=== PATIENT | male | born 1930 | race Caucasian/White ===

== ENCOUNTER 2016-05-07 05:29 | Inpatient (IN) | payer OTHER ==
[~2016-05-07] VITALS: Ht 157.5 cm; Wt 65.2 kg
[2016-05-07 06:58] LABS: BASO % 0.5 % (0.0-1.0); EOS # 0.1 K/mm3 (0.0-0.50); EOS % 1.6 % (0.0-3.0); LARGE UNSTAINED CELL # 0.2 K/mm3 (0.0-0.4); LYMPH # 0.9 K/mm3 (1.5-4.5); LYMPH % 14.4 % (24.0-44.0); MEAN CORPUSCULAR HEMOGLOBIN 24.6 pg (27.0-33.0); MEAN CORPUSCULAR HGB CONC 31.1 g/dl (32.0-36.5); MEAN CORPUSCULAR VOLUME 79.2 fl (80.0-96.0); MONO # 0.4 K/mm3 (0.0-0.8); MONO % 6.2 % (0.0-5.0); NEUTROPHILS # 4.7 K/mm3 (1.8-7.7); NEUTROPHILS % 74.3 % (36.0-66.0); PLATELET COUNT, AUTOMATED 191 k/mm3 (150-450); RED CELL DISTRIBUTION WIDTH 16.9 % (11.5-14.5); WHITE BLOOD COUNT 6.3 K/mm3 (4.0-10.0)
[2016-05-07 07:01] LABS: ANION GAP 8 MEQ/L (8-16); BLOOD UREA NITROGEN 21 MG/DL (7-18); CALCIUM LEVEL 9.3 MG/DL (8.8-10.2); CARBON DIOXIDE LEVEL 28 MEQ/L (21-32); CHLORIDE LEVEL 104 MEQ/L (98-107); CREATININE FOR GFR 0.98 MG/DL (0.70-1.30); GLOMERULAR FILTRATION RATE > 60.0 (>35); GLUCOSE, FASTING 99 MG/DL (83-110); POTASSIUM SERUM 4.3 MEQ/L (3.5-5.1); SODIUM LEVEL 140 MEQ/L (136-145)
[2016-05-07] MEDS ORDERED: CENTTAB PO (07:31)
[2016-05-07] MEDS ORDERED: METO12TA PO (07:31)
[2016-05-07] MEDS ORDERED: ELIQ5TAB PO (07:31)
[2016-05-07] MEDS ORDERED: SPIR25TA2 PO (07:31)
[2016-05-07] MEDS ORDERED: ALPH0.156 OU (07:31)
[2016-05-07] MEDS ORDERED: ACET50TAOT PO (07:31)
[2016-05-07] MEDS ORDERED: NEXI20CA PO (07:31)
[2016-05-07] MEDS ORDERED: ATOR1TAB19 PO (07:31)
[2016-05-07] MEDS: BRIMONIDINE 0.15% OPHTH SOLN 5 ML OU SCH ×2 (09:00→21:43)
[2016-05-07] MEDS ORDERED: ACETAMINOPHEN TAB 650MG DOSE (2X325MG) PO PRN (09:15)
[2016-05-07] MEDS ORDERED: ISOVUE-370 76% 100ML VIAL (Q9967) As Ordered ONE (09:16)
[2016-05-07 10:39] LABS: INR 1.45
[2016-05-07] MEDS ORDERED: ACETAMINOPHEN 325 MG TAB As Ordered ONE (12:29)
--- NOTE | 2016-05-07 14:33 | EDDOCDS ---
Physician Documentation [facility] Name: Salomon Quinones Age: 85 yrs Sex: Male : 1930 Arrival Date: 05/07/2016 Time: 05:29 Bed Admit Hold Private MD: Alexandre Disposition: 05/07/16 08:39 Hospitalization ordered by Lynn Kim for Inpatient Admission. Preliminary diagnosis are Dyspnea - on exertion, rule out congestive heart failure, Left bundle-branch block, unspecified. - Bed requested for PCU. - Status is Inpatient Admission. ld5 - Condition is Stable. - Problem is new. - Symptoms are unchanged. Historical: - Allergies: Ciprofloxacin; - Home Meds: 1. metoprolol tartrate 25 mg Oral tab 2. Eliquis oral oral 3. atorvastatin 10 mg oral tab 1 tab once daily 4. spironolactone 25 mg Oral tab 5. Esomeprazole Magnesium Oral - PMHx: CAD; Hypertension; Kidney stones; Cancer, Prostate; GERD; - PSHx: CABG; Porcine valve replacement; Prostatectomy; lymph node removal; Lithotripsy; - Social history: Smoking status: Patient states former smoker of tobacco. No barriers to communication noted, The patient speaks fluent Senegalese, Speaks appropriately for age. - Family history: Not pertinent. - : The pt / caregiver states he / she is on anticoagulants: Eliquis Home medication list is obtained from the patient. - Exposure Risk Screening:: None identified. Vital Signs: 05/07 05:36 BP 105 / 65 (auto/); cz 05:36 Pulse Ox 99% ; cz 05:39 BP 105 / 65; Pulse 70; Resp 22; Temp 98.2(O); Pulse Ox 94% on R/A; Weight 67.59 kg / js15 149.01 lbs; Height 5 ft. 2 in. (157.48 cm); Pain 0/10; 06:05 Pulse 72 MON; Pulse Ox 97% ; cz 06:06 BP 124 / 60 (auto/); cz 06:20 Pulse 74 MON; Pulse Ox 95% ; cz 06:21 BP 123 / 60 (auto/); cz 07:03 BP 103 / 65 (auto/); ml6 07:03 Pulse 72 MON; Resp 16; Pulse Ox 96% on R/A; Pain 0/10; ml6 09:34 BP 108 / 59 (auto/); ml6 09:34 Pulse 74 MON; Resp 16; Pulse Ox 98% on R/A; ml6 10:04 BP 117 / 63 (auto/); ml6 10:04 Pulse 74 MON; Resp 16; Pulse Ox 97% on R/A; ml6 10:34 BP 108 / 86 (auto/); ml6 10:34 Pulse 72 MON; Resp 16; Pulse Ox 98% on R/A; Pain 0/10; ml6 11:04 BP 127 / 60 (auto/); ml6 11:04 Pulse 70 MON; Resp 16; Pulse Ox 98% on R/A; ml6 11:34 BP 116 / 71 (auto/); ml6 11:34 Pulse 70 MON; Resp 16; Pulse Ox 97% on R/A; ml6 12:04 BP 122 / 65 (auto/); ml6 12:04 Pulse 72 MON; Resp 16; Pulse Ox 97% on R/A; ml6 12:34 BP 122 / 83 (auto/); ml6 12:34 Pulse 70 MON; Resp 16; Pulse Ox 97% on R/A; ml6 13:04 BP 110 / 71 (auto/); ml6 13:04 Pulse 72 MON; Resp 18; Temp 98.1(O); Pulse Ox 98% on R/A; Pain 4/10; ml6 14:16 BP 112 / 74; Pulse 70 MON; Resp 16; Temp 98.2(O); Pulse Ox 95% on R/A; Pain 0/10; ml6 05:39 Body Mass Index 27.25 (67.59 kg, 157.48 cm) js15 MDM: 06:16 Chest, 2 View (pa\E\lat) Ordered. EDMS 06:17 ECG WITH READING ER PHYS+CARDIAG ordered. EDMS 06:17 CBC with Diff Ordered. EDMS 06:17 MED Profile Ordered. EDMS 06:17 BNP Ordered. EDMS 06:17 Cardiac Marker Panel Ordered. EDMS 06:59 BNP Reviewed. br1 07:06 CBC with Diff Reviewed. br1 07:06 MED Profile Reviewed. br1 07:06 Cardiac Marker Panel Reviewed. br1 07:07 IV Saline Lock ordered. br1 07:07 Cloth Classer/Pulse Ox/q 30 min VS ordered. br1 07:12 BED REQUEST+ADM ordered. EDMS 07:47 Financial registration complete. lg 07:58 [facility] Payment Agreement was scanned into [employer] and attached to record. lg 09:07 Admission / Observation Status ordered. EDMS 09:07 ELECTROCARDIOGRAM ADULT ordered. EDMS 09:07 2 GRAM SODIUM DIET ordered. EDMS 09:08 CARDIAC INJURY PROFILE Ordered. EDMS 09:08 CARDIAC INJURY PROFILE Ordered. EDMS 09:08 TROPONIN Ordered. EDMS 09:08 TROPONIN Ordered. EDMS 09:08 URINALYSIS Ordered. EDMS 09:10 PARTIAL THROMBOPLASTIN TIME Ordered. EDMS 09:10 PROTHROMBIN TIME PROFILE\E\INR Ordered. EDMS 09:12 CT ANGIO CHEST Ordered. EDMS 09:18 OCCULT BLOOD STOOL SPECIMEN Ordered. EDMS 13:18 Acetaminophen Tablet 650 mg PO once; Per Dr. Kim ordered. ml6 Administered Medications: 13:18 Drug: Acetaminophen 650 mg [acetaminophen 325 mg tablet (2 tabs)] Route: PO; ml6 Signatures: Dispatcher [employer] EDAZ Fco Coley, RN RN cz Ericka Frost, Reg Reg lg Ghassan Reynolds MD MD br1 Roddy Jack RN RN ml6 Rosetta Bahena RN RN ld5 Justine Ga, ILIANA RN sls2 Tanesha Andrade,RN RN js15 The chart was reviewed and I authenticate all verbal orders and agree with the evaluation and treatment provided.Attachments: 07:58 [facility] Payment Agreement lg MTDD
--- NOTE | 2016-05-07 14:33 | EDDOCDS ---
Nurse's Notes [facility] Name: Salomon Quinones Age: 85 yrs Sex: Male : 1930 Arrival Date: 05/07/2016 Time: 05:29 Bed Admit Hold Private MD: Alexandre Diagnosis: Dyspnea-on exertion, rule out congestive heart failure;Left bundle-branch block, unspecified Presentation: 05/07 05:31 Presenting complaint: EMS states: Pt got up this morning to use restroom and jsJesús noticed when he came back to bed that he was breathing rapidly; upon EMS arrival pt denies pain or shortness of breath; hx of CABG/porcine valve replacement in 01/2016. Suicide/Homicide risk assessment- the patient denies having any suicidal and/or homicidal ideations and does not present with any other emotional, behavioral or mental health complaints. Status: Patient is not a auto specialty services manager or dependent. Transition of care: patient was not received from another setting of care. 05:31 Acuity: NITIN Level 3 [facility] 05:31 Method Of Arrival: Ambulance [facility] 06:35 Adult Sepsis Screening: The patient does not have new or worsening altered mentation. cz Patient has a respiratory rate of greater than or equal to 22 (1 point). Systolic blood pressure is greater than 100. Patient has a qSOFA score of 1- Negative Sepsis Screen. Triage Assessment: 05:41 General: Appears in no apparent distress, Behavior is appropriate for age, cooperative. js15 Pain: Denies pain. The patient is triaged at the bedside. See Assessment in Nurses Notes section of ED record. Neurological: Level of Consciousness is awake, alert, obeys commands, Oriented to person, place, time. Respiratory: Onset: The symptoms/episode began/occurred this morning, Airway is patent Respiratory effort is even, labored, Respiratory pattern is regular, symmetrical. Derm: Skin is pink, warm & dry. Historical: - Allergies: Ciprofloxacin; - Home Meds: 1. metoprolol tartrate 25 mg Oral tab 2. Eliquis oral oral 3. atorvastatin 10 mg oral tab 1 tab once daily 4. spironolactone 25 mg Oral tab 5. Esomeprazole Magnesium Oral - PMHx: CAD; Hypertension; Kidney stones; Cancer, Prostate; GERD; - PSHx: CABG; Porcine valve replacement; Prostatectomy; lymph node removal; Lithotripsy; - Social history: Smoking status: Patient states former smoker of tobacco. No barriers to communication noted, The patient speaks fluent Vietnamese, Speaks appropriately for age. - Family history: Not pertinent. - : The pt / caregiver states he / she is on anticoagulants: Eliquis Home medication list is obtained from the patient. - Exposure Risk Screening:: None identified. Screenin:45 Screening information is obtained from the patient. Fall risk: At risk due to age. cz Assistance ADL's: requires no assistance with activities of daily living. Abuse/DV Screen: The patient / caregiver reports he/she is: not in a situation that causes fear, pain or injury. Nutritional screening: No deficits noted. home support is adequate. 05:51 Advance Directives: Currently, there is a health care proxy, daughter Janis Deleon. cz There is no active DNR order. There is no living will. There is an active Power of Deputy Brand Inspector, Janis Deleon<daughter>. Assessment: 05:45 Adult Sepsis Screening: The patient does not have new or worsening altered mentation. cz Patient's respiratory rate is less than 22. Systolic blood pressure is greater than 100. Patient has a qSOFA score of 0- Negative Sepsis Screen. General: Appears in no apparent distress, comfortable, Behavior is appropriate for age. Cardiovascular: Capillary refill < 3 seconds Rhythm is regular. Respiratory: Airway is patent Respiratory effort is even, unlabored, Respiratory pattern is regular, Breath sounds are clear bilaterally. 07:00 General: Appears in no apparent distress, comfortable, Behavior is appropriate for age, ml6 cooperative. Pain: Denies pain. Neurological: No deficits noted. Level of Consciousness is awake, alert, Oriented to person, place, time. Cardiovascular: No deficits noted. Capillary refill < 3 seconds is brisk in bilateral fingers toes Heart tones S1 S2 S3 present Murmur present Edema is absent. Pulses are all present. Rhythm is regular Chest pain is denied. GI: No deficits noted. Abdomen is flat, non- distended Bowel sounds present X 4 quads. Abd is soft and non tender X 4 quads. 08:00 Reassessment: Patient appears in no apparent distress at this time. Patient denies pain ml6 at this time. Patient states feeling better. Patient states symptoms have improved. 09:00 Reassessment: Patient appears in no apparent distress at this time. Patient denies pain ml6 at this time. Patient states feeling better. Patient states symptoms have improved. 10:00 General: Appears in no apparent distress, Behavior is appropriate for age, cooperative. ml6 Pain: Denies pain. Neurological: No deficits noted. Level of Consciousness is awake, alert, Oriented to person, place, time. Cardiovascular: No deficits noted. Capillary refill < 3 seconds is brisk in bilateral fingers toes Heart tones S1 S2 present. Respiratory: No deficits noted. Airway is patent Respiratory effort is even, unlabored, Respiratory pattern is regular, symmetrical, Breath sounds are clear bilaterally. GI: No deficits noted. 11:00 Reassessment: Patient appears in no apparent distress at this time. Patient denies pain ml6 at this time. Patient states feeling better. Patient states symptoms have improved. patient sleeping soudnly resp unlabored. 12:00 Reassessment: Patient appears in no apparent distress at this time. Patient denies pain ml6 at this time. Patient states feeling better. Patient states symptoms have improved. patient sleeping soundly resp unlabored. 13:00 General: Appears in no apparent distress, Behavior is appropriate for age, cooperative. ml6 Pain: Location: anterior aspect of right shoulder and posterior aspect of right shoulder Pain currently is 4 out of 10 on a pain scale. Pain does not radiate. Quality of pain is described as aching, Pain began years ago. Is intermittent chronic Alleviated by medications, rest, Aggravated by increased activity. Neurological: No deficits noted. Cardiovascular: No deficits noted. Capillary refill < 3 seconds is brisk in bilateral fingers toes. Respiratory: No deficits noted. Airway is patent Respiratory effort is even, unlabored, Respiratory pattern is regular, symmetrical, Breath sounds are clear bilaterally. GI: No deficits noted. Abdomen is flat, non- distended Bowel sounds present X 4 quads. Abd is soft and non tender X 4 quads. 14:17 General: Appears in no apparent distress, Behavior is appropriate for age, cooperative. ml6 Pain: Denies pain. Neurological: No deficits noted. Level of Consciousness is awake, alert, Oriented to person, place, time. Cardiovascular: No deficits noted. Capillary refill < 3 seconds is brisk in bilateral fingers toes Heart tones S1 S2 present Edema is absent. Pulses are all present. Rhythm is regular. Respiratory: No deficits noted. Airway is patent Respiratory effort is even, unlabored, Respiratory pattern is regular, symmetrical. Vital Signs: 05:36 BP 105 / 65 (auto/); cz 05:36 Pulse Ox 99% ; cz 05:39 BP 105 / 65; Pulse 70; Resp 22; Temp 98.2(O); Pulse Ox 94% on R/A; Weight 67.59 kg; js15 Height 5 ft. 2 in. (157.48 cm); Pain 0/10; 06:05 Pulse 72 MON; Pulse Ox 97% ; cz 06:06 BP 124 / 60 (auto/); cz 06:20 Pulse 74 MON; Pulse Ox 95% ; cz 06:21 BP 123 / 60 (auto/); cz 07:03 BP 103 / 65 (auto/); ml6 07:03 Pulse 72 MON; Resp 16; Pulse Ox 96% on R/A; Pain 0/10; ml6 09:34 BP 108 / 59 (auto/); ml6 09:34 Pulse 74 MON; Resp 16; Pulse Ox 98% on R/A; ml6 10:04 BP 117 / 63 (auto/); ml6 10:04 Pulse 74 MON; Resp 16; Pulse Ox 97% on R/A; ml6 10:34 BP 108 / 86 (auto/); ml6 10:34 Pulse 72 MON; Resp 16; Pulse Ox 98% on R/A; Pain 0/10; ml6 11:04 BP 127 / 60 (auto/); ml6 11:04 Pulse 70 MON; Resp 16; Pulse Ox 98% on R/A; ml6 11:34 BP 116 / 71 (auto/); ml6 11:34 Pulse 70 MON; Resp 16; Pulse Ox 97% on R/A; ml6 12:04 BP 122 / 65 (auto/); ml6 12:04 Pulse 72 MON; Resp 16; Pulse Ox 97% on R/A; ml6 12:34 BP 122 / 83 (auto/); ml6 12:34 Pulse 70 MON; Resp 16; Pulse Ox 97% on R/A; ml6 13:04 BP 110 / 71 (auto/); ml6 13:04 Pulse 72 MON; Resp 18; Temp 98.1(O); Pulse Ox 98% on R/A; Pain 4/10; ml6 14:16 BP 112 / 74; Pulse 70 MON; Resp 16; Temp 98.2(O); Pulse Ox 95% on R/A; Pain 0/10; ml6 05:39 Body Mass Index 27.25 (67.59 kg, 157.48 cm) js15 Vitals: 05:39 Log In Time N/A - ambulance arrival. js15 ED Course: 05:30 Patient visited by Balbir Higuera, Septic Tank Servicer. ml3 05:30 Alexandre is Private Physician. ml3 05:30 Patient moved to Waiting ml3 05:30 Patient moved to 17 ml3 05:35 Ion Barajas DO is Attending Physician. cs11 05:35 Triage Initiated js15 05:36 Patient visited by Ion Barajas DO. cs11 05:45 The patient / caregiver is instructed regarding the plan of care and ED course. cz 05:45 Maintain field IV. Site clean & dry. Gauge & site: 20jelco RAC. No procedures done that cz require assistance. 06:29 Patient visited by Fco Coley RN. cz 06:29 Cardiac Marker Panel Sent. cz 06:29 BNP Sent. cz 06:29 MED Profile Sent. cz 06:29 CBC with Diff Sent. cz 06:30 EKG done. (by ED staff). Reviewed by Ion Barajas DO. cln 06:31 Patient visited by Aundrea Wynn PCA. cln 06:58 Patient visited by Roddy Jack, ILIANA. ml6 07:06 Attending Physician role handed off by Ion Barajas DO br1 07:06 Ghassan Reynolds MD is Attending Physician. br1 07:31 Patient visited by Roddy Jack RN. ml6 07:58 [facility] Payment Agreement was scanned into [employer] and attached to record. lg 08:06 Patient visited by Roddy Jack, ILIANA. ml6 08:39 Lynn Kim is Hospitalizing Provider. br1 09:39 Patient moved to Admit Hold jc4 09:49 Diet: Patient given regular meal. dem1 09:50 Patient visited by Melania Calhoun. dem1 13:26 Patient visited by Melania Calhoun. dem1 13:26 Repositioned patient. Cleaned of incontinence. Linen changed. dem1 Administered Medications: 13:18 Drug: Acetaminophen 650 mg [acetaminophen 325 mg tablet (2 tabs)] Route: PO; ml6 Order Results: Lab Order: CBC with Diff; SPEC'M 05/07/16 06:20 Test: WHITE BLOOD COUNT; Value: 6.3; Range: 4.0-10.0; Units: K/mm3; Status: F Test: RED BLOOD COUNT; Value: 4.43; Range: 4.30-6.10; Units: M/mm3; Status: F Test: HEMOGLOBIN; Value: 10.9; Range: 14.0-18.0; Abnormal: Below low normal; Units: g/dl; Status: F Test: HEMATOCRIT; Value: 35.1; Range: 42.0-52.0; Abnormal: Below low normal; Units: %; Status: F Test: MEAN CORPUSCULAR VOLUME; Value: 79.2; Range: 80.0-96.0; Abnormal: Below low normal; Units: fl; Status: F Test: MEAN CORPUSCULAR HEMOGLOBIN; Value: 24.6; Range: 27.0-33.0; Abnormal: Below low normal; Units: pg; Status: F Test: MEAN CORPUSCULAR HGB CONC; Value: 31.1; Range: 32.0-36.5; Abnormal: Below low normal; Units: g/dl; Status: F Test: RED CELL DISTRIBUTION WIDTH; Value: 16.9; Range: 11.5-14.5; Abnormal: Above high normal; Units: %; Status: F Test: PLATELET COUNT, AUTOMATED; Value: 191; Range: 150-450; Units: k/mm3; Status: F Test: NEUTROPHILS %; Value: 74.3; Range: 36.0-66.0; Abnormal: Above high normal; Units: %; Status: F Test: LYMPH %; Value: 14.4; Range: 24.0-44.0; Abnormal: Below low normal; Units: %; Status: F Test: MONO %; Value: 6.2; Range: 0.0-5.0; Abnormal: Above high normal; Units: %; Status: F Test: EOS %; Value: 1.6; Range: 0.0-3.0; Units: %; Status: F Test: BASO %; Value: 0.5; Range: 0.0-1.0; Units: %; Status: F Test: LARGE UNSTAINED CELL %; Value: 3.0; Range: 0.0-4.0; Units: %; Status: F Test: NEUTROPHILS #; Value: 4.7; Range: 1.8-7.7; Units: K/mm3; Status: F Test: LYMPH #; Value: 0.9; Range: 1.5-4.5; Abnormal: Below low normal; Units: K/mm3; Status: F Test: MONO #; Value: 0.4; Range: 0.0-0.8; Units: K/mm3; Status: F Test: EOS #; Value: 0.1; Range: 0.0-0.50; Units: K/mm3; Status: F Test: BASO #; Value: 0.0; Range: 0.0-0.2; Units: K/mm3; Status: F Test: LARGE UNSTAINED CELL #; Value: 0.2; Range: 0.0-0.4; Units: K/mm3; Status: F Lab Order: MED Profile; SPEC'M 05/07/16 06:20 Test: GLUCOSE, FASTING; Value: 99; Range: 83-110; Units: MG/DL; Status: F Test: BLOOD UREA NITROGEN; Value: 21; Range: 7-18; Abnormal: Above high normal; Units: MG/DL; Status: F Test: CREATININE FOR GFR; Value: 0.98; Range: 0.70-1.30; Units: MG/DL; Status: F Test: GLOMERULAR FILTRATION RATE; Value: > 60.0; Range: >35; Status: F Test: SODIUM LEVEL; Value: 140; Range: 136-145; Units: MEQ/L; Status: F Test: POTASSIUM SERUM; Value: 4.3; Range: 3.5-5.1; Units: MEQ/L; Status: F Test: CHLORIDE LEVEL; Value: 104; Range: 98-107; Units: MEQ/L; Status: F Test: CARBON DIOXIDE LEVEL; Value: 28; Range: 21-32; Units: MEQ/L; Status: F Test: ANION GAP; Value: 8; Range: 8-16; Units: MEQ/L; Status: F Test: CALCIUM LEVEL; Value: 9.3; Range: 8.8-10.2; Units: MG/DL; Status: F Test Note: ; Units are mL/min/1.73 m2 Chronic Kidney Disease Staging per NKF: Stage I & II GFR >=60 Normal to Mildly Decreased Stage III GFR 30-59 Moderately Decreased Stage IV GFR 15-29 Severely Decreased Stage V GFR <15 Very Little GFR Left ESRD GFR <15 on RENTAL REPRESENTATIVE Lab Order: BNP; [facility] 05/07/16 06:20 Test: BRAIN NATRIURETIC PEPTIDE; Value: 370; Range: <100; Abnormal: Above high normal; Units: PG/ML; Status: F Lab Order: Cardiac Marker Panel; [facility] 05/07/16 06:20 Test: CPK CREATINE PHOSPHOKINASE; Value: 14; Range: 39-308; Abnormal: Below low normal; Units: U/L; Status: F Test: CK-MB VALUE MASS; Value: 1.0; Range: 0.0-3.6; Units: NG/ML; Status: F Test: MB/CK RELATIVE INDEX; Value: 7.14; Range: < OR =4; Abnormal: Above high normal; Status: F Test: TROPONIN I; Value: 0.15; Range: < 0.10; Abnormal: Above high normal; Units: NG/ML; Status: F Test Note: ; DIAGNOSIS CRITERIA MMB ng/ml Relative Index (RI) NON-AMI < or = 5 N/A E[place]OR[place] ZONE > 5 < or = 4 AMI > 5 > 4 Lab Order: CARDIAC INJURY PROFILE; [facility] 05/07/16 12:25 Test: CPK CREATINE PHOSPHOKINASE; Value: 13; Range: 39-308; Abnormal: Below low normal; Units: U/L; Status: F Test: CK-MB VALUE MASS; Value: 1.0; Range: 0.0-3.6; Units: NG/ML; Status: F Test: MB/CK RELATIVE INDEX; Value: 7.69; Range: < OR =4; Abnormal: Above high normal; Status: F Test Note: ; DIAGNOSIS CRITERIA MMB ng/ml Relative Index (RI) NON-AMI < or = 5 N/A E[place] ZONE > 5 < or = 4 AMI > 5 > 4 Lab Order: TROPONIN; [facility] 05/07/16 12:25 Test: TROPONIN I; Value: 0.15; Range: < 0.10; Abnormal: Above high normal; Units: NG/ML; Status: F Test Note: ; Troponin I Reference Interval for [employer] [place] LOCI: 99th Percentile= 0.00-0.045 ng/ml Risk Stratification: <= 0.10 ng/ml Decreased Risk for Adverse Clinical Events. 0.10-1.50 ng/ml Increased Risk for Adverse Clinical Events. Evaluation of additional criterion and/or repeat testing in 2-6 hours is suggested to rule out myocardial damage. >= 1.50 ng/ml Indicative of Myocardial Injury. Lab Order: PARTIAL THROMBOPLASTIN TIME; SPEC'M 05/07/16 10:09 Test: PARTIAL THROMBOPLASTIN TIME; Value: 40.4; Range: 26.6-37.1; Abnormal: Above high normal; Units: SECONDS; Status: F Lab Order: PROTHROMBIN TIME PROFILE\E\INR; SPEC'M 05/07/16 10:09 Test: PROTHROMBIN TIME; Value: 17.7; Range: 12.3-14.5; Abnormal: Above high normal; Units: SECONDS; Status: F Test: INR; Value: 1.45; Status: F Test Note: ; THERAPUTIC HUMAN INR VALUES INDICATIONS NORMAL RANGES PROPHYLAXIS/TREATMENT OF: VENOUS THROMBOSIS 2.0-3.0 PULMONARY EMBOLISM 2.0-3.0 PREVENTION OF SYSTEMIC EMBOLISM FROM: TISSUE HEART VALVES 2.0-3.0 ACUTE MYOCARDIAL INFARCTION 2.0-3.0 VALVULAR HEART DISEASE 2.0-3.0 ATRIAL FIBRILLATION 2.0-3.0 MECHANICAL VALVES(HIGH RISK) 2.5-3.5 RECURRENT MYOCARDIAL INFARCTION 2.5-3.5 Outcome: 08:39 Decision to Hospitalize by Provider. br1 13:23 CT Study completed. Property :Personal belongings accompany Pt. ml6 13:23 Discharge Assessment: patient administered narcotics - no. ml6 13:25 Admission hand-off: Report called to Face to FAce report given to ILIANA Cesar, SBAR Faxed ml6 and tubed x 2. 14:18 The following High Risk Discharge criteria are identified: None. Admitted to PCU ml6 accompanied by nurse, accompanied by tech, via stretcher, on monitor, with chart. Condition: stable. 14:31 Patient left the ED. ld5 Signatures: Fco Coley RN RN Ericka Fatima Reg Reg lg Kalen, BreonnaMarleneSilva, Septic Tank Servicer Unit ml3 Ghassan Reynolds MD MD br1 Roddy Jack, RN RN ml6 Rosetta Bahena,RN RN ld5 Nelida Chan, RN RN jc4 Melania Calhoun dem1 Ion Barajas, DO cs11 Tanesha Andrade,RN RN js15 Tianna, Aundrea, TELEGRAPH SERVICE RATER TELEGRAPH SERVICE RATER cln MTDD
[2016-05-07 14:45] VITALS: BP 107/69
[2016-05-07] MEDS: PANTOPRAZOLE 40MG TAB (PROTONIX) PO SCH (15:21)
[2016-05-07] MEDS: MULTIVITAMINS/MINERALS THERAP 1 TAB PO SCH (15:21)
[2016-05-07] MEDS: SPIRONOLACTONE 25 MG TAB PO SCH (15:21)
[2016-05-07] MEDS: APIXABAN 5 MG TAB (ELIQUIS) PO SCH ×2 (15:21→21:42)
[2016-05-07] MEDS: METOPROLOL TART 25 MG TABLET PO SCH ×2 (15:22→21:00)
[2016-05-07] MEDS ORDERED: FUROSEMIDE 40 MG/4 ML VIAL (J1940) IV ONE (15:45)
[2016-05-07 16:00] VITALS: BP 122/67
--- NOTE | 2016-05-07 17:15 | HPEPDOC ---
General Date of Admission May 07, 2016 at 09:03 Chief Complaint The patient is a 85-year-old male Presented to the ER with complaints of shortness of breath for the last 3 weeks. History of Present Illness Patient is an 85 year old male with a PMHx Atrial fibrillation, CAD s/ p CABG, Mitral valve replacement (Porcine valve), HTN, DLP, Hiatial Hernia / GERD, Hx of nephrolithiasis, Hx of Prostate CA and urinary incontinence who presented to the ED with complaints of shortness of breath progressing over the last 3 weeks. Patient notes that he has recently had a CABG and Mitral valve replacement at [facility] on January 17. He was then transferred to the rehab on February 14 and was sent home on March 20. He said he was feeling well at home since then, but slowly developed shortness of breath. He reports some occasional non-productive cough. He denies any fevers or chills at home. He does note that he occasionally has leg swelling, but none at this time. He does have 2 pillow orthopnea and experiences paroxysmal nocturnal dyspnea occasionally. He reports that he is compliant with medications and low salt diet. He denies chest pain, nausea, and vomiting, sweating, loss of consciousness, abdominal pain, constipation or diarrhea. Denies any urinary symptoms. Home Medications Scheduled Apixaban Base (Eliquis) 5 Mg Tab 5 MG PO BID (Reported) Atorvastatin Calcium (Atorvastatin Calcium) 10 Mg Tab 10 MG PO QPM (Reported) Brimonidine Tartrate 0.15% (Alphagan P) 0.15 % Vijaya 1 DROP OU BID (Reported) Esomeprazole Magnesium Trihydr (Nexium) 20 Mg Cap 20 MG PO DAILY (Reported) Metoprolol Tartrate (Metoprolol Tartrate) 25 Mg Tab 25 MG PO BID (Reported) Multivitamins (Centrum Silver) 1 Tab Tab 1 TAB PO DAILY (Reported) Spironolactone (Spironolactone) 25 Mg Tab 25 MG PO DAILY (Reported) Scheduled PRN Acetaminophen (Acetaminophen) 500 Mg Tab 500 MG PO PRN PAIN (Reported) Allergies Coded Allergies: Quinolones (Unverified Allergy, Unknown, CIPRO - HIVES, 07/19/12) Past Medical History Medical History Atrial fibrillation, CAD s/p CABG, Mitral valve replacement (Porcine valve), HTN , DLP, Hiatial Hernia / GERD, Hx of nephrolithiasis, Hx of Prostate CA and urinary incontinence Surgical History CABG and Valve replacement 01/2016 Prostatectomy >20 years ago Cholecystectomy >30 years ago Family History Family History Non contributory Social History Social History - Denies the use of tobacco or illicit drugs; Drinks wine occasionally - Denies recent travel or sick contacts - Lives with in [place] - 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 [employer] Review of Symptoms Other systems Constitutional: Denies weight loss, change in appetite, or recent trauma Eyes: No visual changes or eye pain Ears, Nose, Throat: Denies nose bleeds, or difficulty swallowing Cardiovascular: Denies chest pain, sweating, or orthopnea Respiratory: Positive non productive cough, No wheezing, or Positive shortness of breath GI: [place] nausea, vomiting, abdominal pain, diarrhea or constipation : Denies pain with urination or frequency Musculoskeletal: Denies joint pain or swelling Neuro / Psych: Denies muscle weakness or sensory loss Skin: No skin rashes noted All other review of systems negative; otherwise stated in history of present illness Screening: - Colonoscopy done 5-10 years ago Vital Signs - Vitals: BP 103/65, HR 72, RR 16, Sat 96%RA, Temp 98.2F - General: Lying in bed, No acute distress, Speaking in full sentences, AAOx3 - HEENT: NC, AT, PERRLA, EOMI - CVS: Irregularly irregular, +S1S2, - Lungs: Fair air entry bilaterally, + Crackles at left lung base - Abdomen: Soft, Non-distended, Non-tender, + Bowel sounds x 4 - Extremities: + PPx4, No lower extremity edema, No calf tenderness - Neuro: No focal motor or sensory deficit - Skin: No visible rashes Laboratory Data Labs 24H Laboratory Tests 2 05/07/16 06:20: Anion Gap 8, B-Type Natriuretic Peptide 370H, White Blood Count 6.3, Red Blood Count 4.43, Hemoglobin 10.9L, Hematocrit 35.1L, Mean Corpuscular Volume 79.2L, Mean Corpuscular Hemoglobin 24.6L, Mean Corpuscular Hemoglobin Concent 31.1L, Red Cell Distribution Width 16.9H, Platelet Count 191, Neutrophils (%) (Auto) 74.3H, Lymphocytes (%) (Auto) 14.4L, Monocytes (%) (Auto) 6.2H, Eosinophils (%) (Auto) 1.6, Basophils (%) (Auto) 0.5, Neutrophils # (Auto) 4.7, Lymphocytes # ( Auto) 0.9L, Monocytes # (Auto) 0.4, Eosinophils # (Auto) 0.1, Basophils # (Auto ) 0.0, Blood Urea Nitrogen 21H, Creatinine 0.98, Sodium Level 140, Potassium Level 4.3, Chloride Level 104, Carbon Dioxide Level 28, Calcium Level 9.3, Total Creatine Kinase 14L, Creatine Kinase MB 1.0, Creatine Kinase MB Relative Index 7.14H, Glomerular Filtration Rate > 60.0, Large Unclassified Cells # 0.2, Large Unclassified Cells % 3.0, Troponin I 0.15H 05/07/16 10:09: Activated Partial Thromboplast Time 40.4H, Prothromb Time International Ratio 1.45, Prothrombin Time 17.7H 05/07/16 12:25: Total Creatine Kinase 13L, Creatine Kinase MB 1.0, Creatine Kinase MB Relative Index 7.69H, Troponin I 0.15H 05/07/16 16:14: Urine Amorphous Sediment , Urine Appearance CLEAR, Urine Color YELLOW, Urine pH 6.0, Urine Specific [place] 1.025, Urine Protein NEGATIVE, Urine Glucose (UA) NEGATIVE, Urine Ketones NEGATIVE, Urine Urobilinogen 0.2, Urine Bilirubin NEGATIVE, Urine Leukocyte Esterase NEGATIVE, Urine Bacteria (Auto) NEGATIVE, Urine Blood 2+H, Urine Calcium Carbonate Cryst(Auto) , Urine Calcium Oxalate Cryst (Auto) , Urine Calcium Phosphate [place] (Auto) , Urine Cellular Casts , Urine Cystine Crystals , Urine Granular Casts (Auto) , Urine Hyaline Casts (Auto ) 0, Urine Leucine Crystals , Urine Mucus (Auto) , Urine Nitrite NEGATIVE, Urine Oval Fat Bodies (Auto) , Urine RBC (Auto) 34H, Urine Renal Epithelial Cells , Urine Sperm (Auto) , Urine Squamous Epithelial Cells 0, Urine Transitional Epithelial Cells , Urine Trichomonas (Auto) , Urine Triple Phosphate Cryst (Auto) , Urine Tyrosine Crystals , Urine Uric Acid Crystals ( Auto) , Urine WBC (Auto) 2, Urine Waxy Casts (Auto) , Urine Yeast-Like Cells ( Auto) CBC/BMP Laboratory Tests 05/07/16 06:20 Calcium Level 9.3, Total Creatine Kinase 14 L, Red Blood Count 4.43, Mean Corpuscular Volume 79.2 L, Mean Corpuscular Hemoglobin 24.6 L, Mean Corpuscular Hemoglobin Concent 31.1 L, Red Cell Distribution Width 16.9 H, Neutrophils (%) ( Auto) 74.3 H, Lymphocytes (%) (Auto) 14.4 L, Monocytes (%) (Auto) 6.2 H, Eosinophils (%) (Auto) 1.6, Basophils (%) (Auto) 0.5, Neutrophils # (Auto) 4.7, Lymphocytes # (Auto) 0.9 L, Monocytes # (Auto) 0.4, Eosinophils # (Auto) 0.1, Basophils # (Auto) 0.0 Plan / VTE VTE Prophylaxis Ordered?: Yes Plan Plan 1. Dyspnea likely 2/2 acute decompensated heart failure (No EF available at this time) - Presented with shortness of breath worsening over 3 weeks worsened with exertion - CXR 05/07: new sternotomy, mild cardiomegaly, LV prominence, LLL atelectasis / infiltrate with small L pleural effusion, mild R basilar fibrotic scarring - CTA Chest 05/07: no PE, mediastinal adenopathy, cardiomegaly, small R pericardial effusion at 10mm, small L basilar pleural effusion, R basilar atelectasis - BNP mildly elevated at 370 - Will check ECHO - Will give low dose Furosemide at 40mg IV - Strict ins/outs, Daily weights, Head of bed elevation 2. Elevated troponin likely 2/2 demand ischemia 2/2 CHF - No chest pain - EKG with new LBBB compared to prior - Will request records from [facility] - Will trend troponins 3. Normocytic anemia - Hg lower than baseline - will check FOBT 4. Atrial fibrillation - c/w rate control with metoprolol - c/w anticoagulation with Eliquis 5. CAD s/p CABG - c/w atorvastatin 6. Mitral valve replacement - Porcine valve 7. HTN - c/w Spironolactone 8. DLP - c/w atorvastatin 9. Hiatial Hernia / GERD - c/w pantroprazole 10. Hx of nephrolithiasis 11. Hx of Prostate CA - s/p surgery 12. Urinary incontinence 13. DVT prophylaxis - On full anticoagulation with EliquISAAC Joseph MD May 07, 2016 17:15
[2016-05-07 19:58] VITALS: BP 108/68
[2016-05-07] MEDS ORDERED: ATORVASTATIN 10 MG TAB PO SCH (21:00)
--- NOTE | 2016-05-07 22:27 | REP ---
PA and lateral chest 05/07/2016 Indication: Shortness of breath Comparison: PA and lateral chest 10/14/2015 performed at [facility] Findings: There has been an interval median sternotomy. There is a large metallic clip projected over the left hilar region The cardiac silhouette is mildly enlarged with left ventricular hypertrophy. There is left basilar parenchymal disease consistent with atelectasis/infiltrate and small left pleural effusion. There is right basilar fibrotic scarring. There are moderate degenerative changes in thoracic spine. Multiple surgical clips are noted in right upper quadrant Impression: Interval median sternotomy, with mild cardiomegaly and left ventricular prominence again noted. Left lower lobe atelectasis and/or infiltrate with small left pleural effusion. Mild right basilar fibrotic scarring Signed by Lorrie Davis MD 05/07/2016 10:19 P
--- NOTE | 2016-05-07 22:40 | REP ---
CTA chest 05/07/2016. Comparison: PA and lateral chest 05/07/2016, PA and lateral chest 06/17/11 Indication: Exclude pulmonary embolus Technique : Following dynamic IV contrast administration with 75 ml Isovue 370 mg/ml, 3 mm spiral axial sections were formed through the chest Findings: The patient has had interval median sternotomy. The thoracic aorta is without aneurysm or dissection. The heart is mildly enlarged. There are multiple mediastinal nodes, largest 14 mm short-axis diameter within the right paratracheal region. There is a 12 mm aorticopulmonary window node and right paratracheal node. There is a small right anterior pericardial effusion of maximal depth 10 mm. There are no pulmonary artery filling defects or findings to suggest pulmonary artery emboli bilaterally. There is a small left basilar pleural effusion which tracks in the major fissure. There is left lower lobe consolidation consistent with small area of atelectasis and/or infiltrate. There is mild right basilar atelectasis. There is no evidence of interstitial pulmonary edema. Visualized portions of liver without focal lesions. The spleen is upper normal size, and contains scattered calcified granulomata. Adrenal glands are normal. There has been prior cholecystectomy. Visualized portions of kidneys without hydronephrosis. Impression 1. No evidence of pulmonary artery embolus 2. Mediastinal adenopathy with scattered enlarged nodes measuring up to 14 mm short-axis diameter 2. Mild cardiomegaly. Interval median sternotomy. Small isolated right pericardial effusion of maximal depth 10 mm 3. Small left basilar pleural effusion with atelectasis/infiltrate. 4. Right basilar atelectasis/fibrotic scarring Signed by Lorrie Davis MD 05/07/2016 10:32 P
[2016-05-08 00:24] VITALS: BP 116/72
[2016-05-08 04:08] LABS: BASO % 0.6 % (0.0-1.0); EOS # 0.1 K/mm3 (0.0-0.50); EOS % 0.9 % (0.0-3.0); LARGE UNSTAINED CELL # 0.1 K/mm3 (0.0-0.4); LARGE UNSTAINED CELL % 2.1 % (0.0-4.0); LYMPH # 1.1 K/mm3 (1.5-4.5); LYMPH % 13.8 % (24.0-44.0); MEAN CORPUSCULAR HEMOGLOBIN 24.8 pg (27.0-33.0); MEAN CORPUSCULAR HGB CONC 31.1 g/dl (32.0-36.5); MEAN CORPUSCULAR VOLUME 79.9 fl (80.0-96.0); MONO # 0.4 K/mm3 (0.0-0.8); MONO % 5.6 % (0.0-5.0); NEUTROPHILS # 5.2 K/mm3 (1.8-7.7); NEUTROPHILS % 76.9 % (36.0-66.0); PLATELET COUNT, AUTOMATED 191 k/mm3 (150-450); RED CELL DISTRIBUTION WIDTH 18.3 % (11.5-14.5); WHITE BLOOD COUNT 6.8 K/mm3 (4.0-10.0)
[2016-05-08 04:14] LABS: INR 1.71
[2016-05-08 04:27] LABS: ALBUMIN 3.1 GM/DL (3.2-5.2); ALBUMIN/GLOBULIN RATIO 0.78 (1.00-1.93); ALKALINE PHOSPHATASE 98 U/L (45-117); ALT/SGPT 16 U/L (12-78); ANION GAP 10 MEQ/L (8-16); AST/SGOT 13 U/L (15-37); BILIRUBIN,TOTAL 0.6 MG/DL (0.2-1.0); BLOOD UREA NITROGEN 19 MG/DL (7-18); CARBON DIOXIDE LEVEL 27 MEQ/L (21-32); CHLORIDE LEVEL 101 MEQ/L (98-107); CREATININE FOR GFR 0.99 MG/DL (0.70-1.30); GLOMERULAR FILTRATION RATE > 60.0 (>35); GLUCOSE, FASTING 114 MG/DL (83-110); MAGNESIUM LEVEL 2.1 MG/DL (1.8-2.4); POTASSIUM SERUM 4.1 MEQ/L (3.5-5.1); SODIUM LEVEL 138 MEQ/L (136-145); TOTAL PROTEIN 7.1 GM/DL (6.4-8.2)
[2016-05-08 05:40] VITALS: BP 115/70
[2016-05-08 08:00] VITALS: BP 113/71
[2016-05-08] MEDS: PANTOPRAZOLE 40MG TAB (PROTONIX) PO SCH (09:00)
[2016-05-08 09:44] VITALS: BP 113/71
[2016-05-08] MEDS: SPIRONOLACTONE 25 MG TAB PO SCH (09:44)
[2016-05-08] MEDS: METOPROLOL TART 25 MG TABLET PO SCH (09:44)
[2016-05-08] MEDS: MULTIVITAMINS/MINERALS THERAP 1 TAB PO SCH (09:44)
[2016-05-08] MEDS: BRIMONIDINE 0.15% OPHTH SOLN 5 ML OU SCH (09:44)
[2016-05-08] MEDS: APIXABAN 5 MG TAB (ELIQUIS) PO SCH (09:44)
--- NOTE | 2016-05-08 10:06 | ECGEPIP ---
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 Left bundle branch block No significant change when compared to prior tracing of 05/07/2016 Electronically Signed On 05-08-2016 10:06:20 EST by Gumaro Xavier
[2016-05-08 12:00] VITALS: BP 100/65
--- NOTE | 2016-05-08 12:57 | ECGEPIP ---
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
--- NOTE | 2016-05-08 19:22 | DSES ---
DATE OF ADMISSION: 05/07/2016 DATE OF DISCHARGE: 05/08/2016 ATTENDING PHYSICIAN: Lynn Kim MD PRIMARY CARE PHYSICIAN: Braden Schroeder Jr., MD REFERRING PHYSICIAN: None. CONSULTING PHYSICIANS: None. CONDITION ON DISCHARGE: Stable. FINAL DIAGNOSIS: Exacerbation of systolic congestive heart failure (CHF). PROCEDURES: None. 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 The patient also recently had a CABG and mitral valve replacement at [facility] on 01/18/2016. He was transferred to the rehabilitation center on 02/15/2016, and was sent home on 03/20/2017. He said he was feeling well at home and then slowly developed shortness of breath. He reports some occasional nonproductive cough. He denied any fevers or chills at home. He does note that he occasionally has leg swelling but none at this time. He does have two pillow orthopnea and experiences paroxysmal nocturnal dyspnea on occasion. HOSPITAL COURSE: 1. Dyspnea, likely secondary to acute decompensated heart failure. No ejection fraction was available at admission. Presented with shortness of breath worsening over 3 weeks, worsening with exertion. Chest xray revealed new sternotomy with mild cardiomegaly, left ventricular prominence, left lower lobe atelectasis/infiltrate with small left pleural effusion, mild right basilar fibrotic scarring. CTA chest done 05/07/2016, revealed no pulmonary embolism, revealed mediastinal adenopathy, cardiomegaly, and small right pericardial effusion of 10 mm, small left basilar pleural effusion, right basilar atelectasis. Brain natriuretic peptide (BNP) was mildly elevated at 370. The patient had an echocardiogram report which was completed in March 2016 which revealed normal left ventricular size with mild left ventricular hypertrophy, septal wall motion abnormality consistent with left bundle branch block, global hypokinesia with overall estimated left ventricular ejection fraction approximated to be 40%, normally functioning bioprosthesis in mitral position, mean gradient 3 mmHg, elevated central venous pressure and at least moderate pulmonary hypertension, patient is in atrial flutter. Patient received furosemide 40 mg one time dose. He was maintained on strict input and output, daily weights, and head of bed elevation. On evaluation of patient this morning, he was doing sufficiently better. Physical exam did not reveal any more crackles in his lung escobedo. Patient was cleared for discharge home. Patient was advised to followup with his primary care provider in the next 2 days. Patient already has an appointment and will followup. Patient was not sent home with any standing dose of Lasix. 2. Elevated troponins likely secondary to demand ischemia secondary to congestive heart failure. No chest pain. EKG was consistent with a new left bundle branch block, however upon reviewing the echocardiogram it is consistent with prior. Troponins were trended and remained stable. 3. Normocytic anemia. Hemoglobin was lower than baseline, however it remained consistent. 4. Atrial fibrillation. Continue rate control with metoprolol and anticoagulation with Eliquis. 5. Coronary artery disease status post CABG. Continue with atorvastatin. 6. Mitral valve replacement with porcelain valve. 7. Hypertension. Continue with spironolactone. 8. Dyslipidemia. Continue with atorvastatin. 9. Hiatal hernia and GERD. Continue with Protonix. 10. History of nephrolithiasis. 11. History of prostate cancer status post surgery. 12. Urinary incontinence. 13. Deep venous thrombosis (DVT) prophylaxis. Is on full anticoagulation with Eliquis. DISCHARGE MEDICATIONS: Patient was discharged home with the following medication list: - acetaminophen 500 mg by mouth as needed for pain - Eliquis 5 mg by mouth twice a day - atorvastatin 10 mg by mouth every evening - brimonidine one drop in each eye twice a day - omeprazole 20 mg by mouth daily - metoprolol 25 mg by mouth twice a day - multivitamins one tablet by mouth daily - spironolactone 25 mg by mouth daily DISCHARGE INSTRUCTIONS: Patient was advised to followup with his primary care provider in the next 2 days as well as cardiology within the next 7 days. He was advised to remain compliant with treatment plan and medications and return to the emergency room if he experiences any problems. TIME SPENT ON DISCHARGE: 35 minutes
--- NOTE | 2016-05-09 15:32 | EDDOCDS ---
Nurse's Notes [facility] Name: Salomon Quinones Age: 85 yrs Sex: Male : 1930 Arrival Date: 05/07/2016 Time: 05:29 Bed Admit Hold Private MD: Alexandre Diagnosis: Dyspnea-on exertion, rule out congestive heart failure;Left bundle-branch block, unspecified Presentation: 05/07 05:31 Presenting complaint: EMS states: Pt got up this morning to use restroom and jsJesús noticed when he came back to bed that he was breathing rapidly; upon EMS arrival pt denies pain or shortness of breath; hx of CABG/porcine valve replacement in 01/2016. Suicide/Homicide risk assessment- the patient denies having any suicidal and/or homicidal ideations and does not present with any other emotional, behavioral or mental health complaints. Status: Patient is not a nutrition services assistant or dependent. Transition of care: patient was not received from another setting of care. 05:31 Acuity: NITIN Level 3 [facility] 05:31 Method Of Arrival: Ambulance [facility] 06:35 Adult Sepsis Screening: The patient does not have new or worsening altered mentation. cz Patient has a respiratory rate of greater than or equal to 22 (1 point). Systolic blood pressure is greater than 100. Patient has a qSOFA score of 1- Negative Sepsis Screen. Triage Assessment: 05:41 General: Appears in no apparent distress, Behavior is appropriate for age, cooperative. js15 Pain: Denies pain. The patient is triaged at the bedside. See Assessment in Nurses Notes section of ED record. Neurological: Level of Consciousness is awake, alert, obeys commands, Oriented to person, place, time. Respiratory: Onset: The symptoms/episode began/occurred this morning, Airway is patent Respiratory effort is even, labored, Respiratory pattern is regular, symmetrical. Derm: Skin is pink, warm & dry. Historical: - Allergies: Ciprofloxacin; - Home Meds: 1. metoprolol tartrate 25 mg Oral tab 2. Eliquis oral oral 3. atorvastatin 10 mg oral tab 1 tab once daily 4. spironolactone 25 mg Oral tab 5. Esomeprazole Magnesium Oral - PMHx: CAD; Hypertension; Kidney stones; Cancer, Prostate; GERD; - PSHx: CABG; Porcine valve replacement; Prostatectomy; lymph node removal; Lithotripsy; - Social history: Smoking status: Patient states former smoker of tobacco. No barriers to communication noted, The patient speaks fluent British, Speaks appropriately for age. - Family history: Not pertinent. - : The pt / caregiver states he / she is on anticoagulants: Eliquis Home medication list is obtained from the patient. - Exposure Risk Screening:: None identified. Screenin:45 Screening information is obtained from the patient. Fall risk: At risk due to age. cz Assistance ADL's: requires no assistance with activities of daily living. Abuse/DV Screen: The patient / caregiver reports he/she is: not in a situation that causes fear, pain or injury. Nutritional screening: No deficits noted. home support is adequate. 05:51 Advance Directives: Currently, there is a health care proxy, daughter Janis Deleon. cz There is no active DNR order. There is no living will. There is an active Power of Nicker And Breaker, Janis Deleon<daughter>. Assessment: 05:45 Adult Sepsis Screening: The patient does not have new or worsening altered mentation. cz Patient's respiratory rate is less than 22. Systolic blood pressure is greater than 100. Patient has a qSOFA score of 0- Negative Sepsis Screen. General: Appears in no apparent distress, comfortable, Behavior is appropriate for age. Cardiovascular: Capillary refill < 3 seconds Rhythm is regular. Respiratory: Airway is patent Respiratory effort is even, unlabored, Respiratory pattern is regular, Breath sounds are clear bilaterally. 07:00 General: Appears in no apparent distress, comfortable, Behavior is appropriate for age, ml6 cooperative. Pain: Denies pain. Neurological: No deficits noted. Level of Consciousness is awake, alert, Oriented to person, place, time. Cardiovascular: No deficits noted. Capillary refill < 3 seconds is brisk in bilateral fingers toes Heart tones S1 S2 S3 present Murmur present Edema is absent. Pulses are all present. Rhythm is regular Chest pain is denied. GI: No deficits noted. Abdomen is flat, non- distended Bowel sounds present X 4 quads. Abd is soft and non tender X 4 quads. 08:00 Reassessment: Patient appears in no apparent distress at this time. Patient denies pain ml6 at this time. Patient states feeling better. Patient states symptoms have improved. 09:00 Reassessment: Patient appears in no apparent distress at this time. Patient denies pain ml6 at this time. Patient states feeling better. Patient states symptoms have improved. 10:00 General: Appears in no apparent distress, Behavior is appropriate for age, cooperative. ml6 Pain: Denies pain. Neurological: No deficits noted. Level of Consciousness is awake, alert, Oriented to person, place, time. Cardiovascular: No deficits noted. Capillary refill < 3 seconds is brisk in bilateral fingers toes Heart tones S1 S2 present. Respiratory: No deficits noted. Airway is patent Respiratory effort is even, unlabored, Respiratory pattern is regular, symmetrical, Breath sounds are clear bilaterally. GI: No deficits noted. 11:00 Reassessment: Patient appears in no apparent distress at this time. Patient denies pain ml6 at this time. Patient states feeling better. Patient states symptoms have improved. patient sleeping soudnly resp unlabored. 12:00 Reassessment: Patient appears in no apparent distress at this time. Patient denies pain ml6 at this time. Patient states feeling better. Patient states symptoms have improved. patient sleeping soundly resp unlabored. 13:00 General: Appears in no apparent distress, Behavior is appropriate for age, cooperative. ml6 Pain: Location: anterior aspect of right shoulder and posterior aspect of right shoulder Pain currently is 4 out of 10 on a pain scale. Pain does not radiate. Quality of pain is described as aching, Pain began years ago. Is intermittent chronic Alleviated by medications, rest, Aggravated by increased activity. Neurological: No deficits noted. Cardiovascular: No deficits noted. Capillary refill < 3 seconds is brisk in bilateral fingers toes. Respiratory: No deficits noted. Airway is patent Respiratory effort is even, unlabored, Respiratory pattern is regular, symmetrical, Breath sounds are clear bilaterally. GI: No deficits noted. Abdomen is flat, non- distended Bowel sounds present X 4 quads. Abd is soft and non tender X 4 quads. 14:17 General: Appears in no apparent distress, Behavior is appropriate for age, cooperative. ml6 Pain: Denies pain. Neurological: No deficits noted. Level of Consciousness is awake, alert, Oriented to person, place, time. Cardiovascular: No deficits noted. Capillary refill < 3 seconds is brisk in bilateral fingers toes Heart tones S1 S2 present Edema is absent. Pulses are all present. Rhythm is regular. Respiratory: No deficits noted. Airway is patent Respiratory effort is even, unlabored, Respiratory pattern is regular, symmetrical. Vital Signs: 05:36 BP 105 / 65 (auto/); cz 05:36 Pulse Ox 99% ; cz 05:39 BP 105 / 65; Pulse 70; Resp 22; Temp 98.2(O); Pulse Ox 94% on R/A; Weight 67.59 kg; js15 Height 5 ft. 2 in. (157.48 cm); Pain 0/10; 06:05 Pulse 72 MON; Pulse Ox 97% ; cz 06:06 BP 124 / 60 (auto/); cz 06:20 Pulse 74 MON; Pulse Ox 95% ; cz 06:21 BP 123 / 60 (auto/); cz 07:03 BP 103 / 65 (auto/); ml6 07:03 Pulse 72 MON; Resp 16; Pulse Ox 96% on R/A; Pain 0/10; ml6 09:34 BP 108 / 59 (auto/); ml6 09:34 Pulse 74 MON; Resp 16; Pulse Ox 98% on R/A; ml6 10:04 BP 117 / 63 (auto/); ml6 10:04 Pulse 74 MON; Resp 16; Pulse Ox 97% on R/A; ml6 10:34 BP 108 / 86 (auto/); ml6 10:34 Pulse 72 MON; Resp 16; Pulse Ox 98% on R/A; Pain 0/10; ml6 11:04 BP 127 / 60 (auto/); ml6 11:04 Pulse 70 MON; Resp 16; Pulse Ox 98% on R/A; ml6 11:34 BP 116 / 71 (auto/); ml6 11:34 Pulse 70 MON; Resp 16; Pulse Ox 97% on R/A; ml6 12:04 BP 122 / 65 (auto/); ml6 12:04 Pulse 72 MON; Resp 16; Pulse Ox 97% on R/A; ml6 12:34 BP 122 / 83 (auto/); ml6 12:34 Pulse 70 MON; Resp 16; Pulse Ox 97% on R/A; ml6 13:04 BP 110 / 71 (auto/); ml6 13:04 Pulse 72 MON; Resp 18; Temp 98.1(O); Pulse Ox 98% on R/A; Pain 4/10; ml6 14:16 BP 112 / 74; Pulse 70 MON; Resp 16; Temp 98.2(O); Pulse Ox 95% on R/A; Pain 0/10; ml6 05:39 Body Mass Index 27.25 (67.59 kg, 157.48 cm) js15 Vitals: 05:39 Log In Time N/A - ambulance arrival. js15 ED Course: 05:30 Patient visited by Balbir Higuera, Receiver Stocker. ml3 05:30 Alexandre is Private Physician. ml3 05:30 Patient moved to Waiting ml3 05:30 Patient moved to 17 ml3 05:35 Ion Barajas DO is Attending Physician. cs11 05:35 Triage Initiated js15 05:36 Patient visited by Ion Barajas DO. cs11 05:45 The patient / caregiver is instructed regarding the plan of care and ED course. cz 05:45 Maintain field IV. Site clean & dry. Gauge & site: 20jelco RAC. No procedures done that cz require assistance. 06:29 Patient visited by Fco Coley RN. cz 06:29 Cardiac Marker Panel Sent. cz 06:29 BNP Sent. cz 06:29 MED Profile Sent. cz 06:29 CBC with Diff Sent. cz 06:30 EKG done. (by ED staff). Reviewed by Ion Barajas DO. cln 06:31 Patient visited by Aundrea Wynn PCA. cln 06:58 Patient visited by Roddy Jack, ILIANA. ml6 07:06 Attending Physician role handed off by Ion Barajas DO br1 07:06 Ghassan Reynolds MD is Attending Physician. br1 07:31 Patient visited by Roddy Jack RN. ml6 07:58 [facility] Payment Agreement was scanned into [employer] and attached to record. lg 08:06 Patient visited by Roddy Jack, ILIANA. ml6 08:39 Lynn Kim is Hospitalizing Provider. br1 09:39 Patient moved to Admit Hold jc4 09:49 Diet: Patient given regular meal. dem1 09:50 Patient visited by Mealnia Calhoun. dem1 13:26 Patient visited by Melania Calhoun. dem1 13:26 Repositioned patient. Cleaned of incontinence. Linen changed. dem1 16:09 T-Sheet-- Draft Copy was scanned into [employer] and attached to record. r Administered Medications: 13:18 Drug: Acetaminophen 650 mg [acetaminophen 325 mg tablet (2 tabs)] Route: PO; ml6 Order Results: Lab Order: CBC with Diff; SPEC'M 05/07/16 06:20 Test: WHITE BLOOD COUNT; Value: 6.3; Range: 4.0-10.0; Units: K/mm3; Status: F Test: RED BLOOD COUNT; Value: 4.43; Range: 4.30-6.10; Units: M/mm3; Status: F Test: HEMOGLOBIN; Value: 10.9; Range: 14.0-18.0; Abnormal: Below low normal; Units: g/dl; Status: F Test: HEMATOCRIT; Value: 35.1; Range: 42.0-52.0; Abnormal: Below low normal; Units: %; Status: F Test: MEAN CORPUSCULAR VOLUME; Value: 79.2; Range: 80.0-96.0; Abnormal: Below low normal; Units: fl; Status: F Test: MEAN CORPUSCULAR HEMOGLOBIN; Value: 24.6; Range: 27.0-33.0; Abnormal: Below low normal; Units: pg; Status: F Test: MEAN CORPUSCULAR HGB CONC; Value: 31.1; Range: 32.0-36.5; Abnormal: Below low normal; Units: g/dl; Status: F Test: RED CELL DISTRIBUTION WIDTH; Value: 16.9; Range: 11.5-14.5; Abnormal: Above high normal; Units: %; Status: F Test: PLATELET COUNT, AUTOMATED; Value: 191; Range: 150-450; Units: k/mm3; Status: F Test: NEUTROPHILS %; Value: 74.3; Range: 36.0-66.0; Abnormal: Above high normal; Units: %; Status: F Test: LYMPH %; Value: 14.4; Range: 24.0-44.0; Abnormal: Below low normal; Units: %; Status: F Test: MONO %; Value: 6.2; Range: 0.0-5.0; Abnormal: Above high normal; Units: %; Status: F Test: EOS %; Value: 1.6; Range: 0.0-3.0; Units: %; Status: F Test: BASO %; Value: 0.5; Range: 0.0-1.0; Units: %; Status: F Test: LARGE UNSTAINED CELL %; Value: 3.0; Range: 0.0-4.0; Units: %; Status: F Test: NEUTROPHILS #; Value: 4.7; Range: 1.8-7.7; Units: K/mm3; Status: F Test: LYMPH #; Value: 0.9; Range: 1.5-4.5; Abnormal: Below low normal; Units: K/mm3; Status: F Test: MONO #; Value: 0.4; Range: 0.0-0.8; Units: K/mm3; Status: F Test: EOS #; Value: 0.1; Range: 0.0-0.50; Units: K/mm3; Status: F Test: BASO #; Value: 0.0; Range: 0.0-0.2; Units: K/mm3; Status: F Test: LARGE UNSTAINED CELL #; Value: 0.2; Range: 0.0-0.4; Units: K/mm3; Status: F Lab Order: MED Profile; SPEC'M 05/07/16 06:20 Test: GLUCOSE, FASTING; Value: 99; Range: 83-110; Units: MG/DL; Status: F Test: BLOOD UREA NITROGEN; Value: 21; Range: 7-18; Abnormal: Above high normal; Units: MG/DL; Status: F Test: CREATININE FOR GFR; Value: 0.98; Range: 0.70-1.30; Units: MG/DL; Status: F Test: GLOMERULAR FILTRATION RATE; Value: > 60.0; Range: >35; Status: F Test: SODIUM LEVEL; Value: 140; Range: 136-145; Units: MEQ/L; Status: F Test: POTASSIUM SERUM; Value: 4.3; Range: 3.5-5.1; Units: MEQ/L; Status: F Test: CHLORIDE LEVEL; Value: 104; Range: 98-107; Units: MEQ/L; Status: F Test: CARBON DIOXIDE LEVEL; Value: 28; Range: 21-32; Units: MEQ/L; Status: F Test: ANION GAP; Value: 8; Range: 8-16; Units: MEQ/L; Status: F Test: CALCIUM LEVEL; Value: 9.3; Range: 8.8-10.2; Units: MG/DL; Status: F Test Note: ; Units are mL/min/1.73 m2 Chronic Kidney Disease Staging per NKF: Stage I & II GFR >=60 Normal to Mildly Decreased Stage III GFR 30-59 Moderately Decreased Stage IV GFR 15-29 Severely Decreased Stage V GFR <15 Very Little GFR Left ESRD GFR <15 on MECHANICAL PIPING DESIGNER Lab Order: BNP; [facility] 05/07/16 06:20 Test: BRAIN NATRIURETIC PEPTIDE; Value: 370; Range: <100; Abnormal: Above high normal; Units: PG/ML; Status: F Lab Order: Cardiac Marker Panel; [facility] 05/07/16 06:20 Test: CPK CREATINE PHOSPHOKINASE; Value: 14; Range: 39-308; Abnormal: Below low normal; Units: U/L; Status: F Test: CK-MB VALUE MASS; Value: 1.0; Range: 0.0-3.6; Units: NG/ML; Status: F Test: MB/CK RELATIVE INDEX; Value: 7.14; Range: < OR =4; Abnormal: Above high normal; Status: F Test: TROPONIN I; Value: 0.15; Range: < 0.10; Abnormal: Above high normal; Units: NG/ML; Status: F Test Note: ; DIAGNOSIS CRITERIA MMB ng/ml Relative Index (RI) NON-AMI < or = 5 N/A ENAMORADO ZONE > 5 < or = 4 AMI > 5 > 4 Lab Order: CARDIAC INJURY PROFILE; [facility] 05/07/16 12:25 Test: CPK CREATINE PHOSPHOKINASE; Value: 13; Range: 39-308; Abnormal: Below low normal; Units: U/L; Status: F Test: CK-MB VALUE MASS; Value: 1.0; Range: 0.0-3.6; Units: NG/ML; Status: F Test: MB/CK RELATIVE INDEX; Value: 7.69; Range: < OR =4; Abnormal: Above high normal; Status: F Test Note: ; DIAGNOSIS CRITERIA MMB ng/ml Relative Index (RI) NON-AMI < or = 5 N/A ENAMORADO ZONE > 5 < or = 4 AMI > 5 > 4 Lab Order: TROPONIN; [facility] 05/07/16 12:25 Test: TROPONIN I; Value: 0.15; Range: < 0.10; Abnormal: Above high normal; Units: NG/ML; Status: F Test Note: ; Troponin I Reference Interval for AMS-Qi LOCI: 99th Percentile= 0.00-0.045 ng/ml Risk Stratification: <= 0.10 ng/ml Decreased Risk for Adverse Clinical Events. 0.10-1.50 ng/ml Increased Risk for Adverse Clinical Events. Evaluation of additional criterion and/or repeat testing in 2-6 hours is suggested to rule out myocardial damage. >= 1.50 ng/ml Indicative of Myocardial Injury. Lab Order: PARTIAL THROMBOPLASTIN TIME; [facility] 05/07/16 10:09 Test: PARTIAL THROMBOPLASTIN TIME; Value: 40.4; Range: 26.6-37.1; Abnormal: Above high normal; Units: SECONDS; Status: F Lab Order: PROTHROMBIN TIME PROFILE\E\INR; [facility]' 05/07/16 10:09 Test: PROTHROMBIN TIME; Value: 17.7; Range: 12.3-14.5; Abnormal: Above high normal; Units: SECONDS; Status: F Test: INR; Value: 1.45; Status: F Test Note: ; THERAPUTIC HUMAN INR VALUES INDICATIONS NORMAL RANGES PROPHYLAXIS/TREATMENT OF: VENOUS THROMBOSIS 2.0-3.0 PULMONARY EMBOLISM 2.0-3.0 PREVENTION OF SYSTEMIC EMBOLISM FROM: TISSUE HEART VALVES 2.0-3.0 ACUTE MYOCARDIAL INFARCTION 2.0-3.0 VALVULAR HEART DISEASE 2.0-3.0 ATRIAL FIBRILLATION 2.0-3.0 MECHANICAL VALVES(HIGH RISK) 2.5-3.5 RECURRENT MYOCARDIAL INFARCTION 2.5-3.5 Outcome: 08:39 Decision to Hospitalize by Provider. br1 13:23 CT Study completed. Property :Personal belongings accompany Pt. ml6 13:23 Discharge Assessment: patient administered narcotics - no. ml6 13:25 Admission hand-off: Report called to Face to FAce report given to ILIANA Cesar, SUAR Faxed ml6 and tubed x 2. 14:18 The following High Risk Discharge criteria are identified: None. Admitted to PCU ml6 accompanied by nurse, accompanied by tech, via stretcher, on monitor, with chart. Condition: stable. 14:31 Patient left the ED. ld5 Signatures: Fco Coley, RN RN cz Ericka Frost, Reg Reg lg Kalen, Balbir, Receiver Stocker Unit ml3 Ghassan Reynolds MD MD br1 Roddy Jack RN RN ml6 Rosetta Bahena RN RN ld5 Nelida Chan RN RN jc4 Melania Calhoun dem1 Ion Barajas, DO HEWITT cs11 Tanesha AndradeRN RN js15 Aundrea Wynn, ICE CREAM MACHINE OPERATOR ICE CREAM MACHINE OPERATOR cln Juanita Varma Chart Complete MTDD
--- NOTE | 2016-05-09 15:32 | EDDOCDS ---
Physician Documentation [facility] Name: Salomon Quinones Age: 85 yrs Sex: Male : 1930 Arrival Date: 05/07/2016 Time: 05:29 Bed Admit Hold Private MD: Alexandre Disposition: 05/07/16 08:39 Hospitalization ordered by Lynn Kim for Inpatient Admission. Preliminary diagnosis are Dyspnea - on exertion, rule out congestive heart failure, Left bundle-branch block, unspecified. - Bed requested for PCU. - Status is Inpatient Admission. ld5 - Condition is Stable. - Problem is new. - Symptoms are unchanged. Historical: - Allergies: Ciprofloxacin; - Home Meds: 1. metoprolol tartrate 25 mg Oral tab 2. Eliquis oral oral 3. atorvastatin 10 mg oral tab 1 tab once daily 4. spironolactone 25 mg Oral tab 5. Esomeprazole Magnesium Oral - PMHx: CAD; Hypertension; Kidney stones; Cancer, Prostate; GERD; - PSHx: CABG; Porcine valve replacement; Prostatectomy; lymph node removal; Lithotripsy; - Social history: Smoking status: Patient states former smoker of tobacco. No barriers to communication noted, The patient speaks fluent Croatian, Speaks appropriately for age. - Family history: Not pertinent. - : The pt / caregiver states he / she is on anticoagulants: Eliquis Home medication list is obtained from the patient. - Exposure Risk Screening:: None identified. Vital Signs: 05/07 05:36 BP 105 / 65 (auto/); cz 05:36 Pulse Ox 99% ; cz 05:39 BP 105 / 65; Pulse 70; Resp 22; Temp 98.2(O); Pulse Ox 94% on R/A; Weight 67.59 kg / js15 149.01 lbs; Height 5 ft. 2 in. (157.48 cm); Pain 0/10; 06:05 Pulse 72 MON; Pulse Ox 97% ; cz 06:06 BP 124 / 60 (auto/); cz 06:20 Pulse 74 MON; Pulse Ox 95% ; cz 06:21 BP 123 / 60 (auto/); cz 07:03 BP 103 / 65 (auto/); ml6 07:03 Pulse 72 MON; Resp 16; Pulse Ox 96% on R/A; Pain 0/10; ml6 09:34 BP 108 / 59 (auto/); ml6 09:34 Pulse 74 MON; Resp 16; Pulse Ox 98% on R/A; ml6 10:04 BP 117 / 63 (auto/); ml6 10:04 Pulse 74 MON; Resp 16; Pulse Ox 97% on R/A; ml6 10:34 BP 108 / 86 (auto/); ml6 10:34 Pulse 72 MON; Resp 16; Pulse Ox 98% on R/A; Pain 0/10; ml6 11:04 BP 127 / 60 (auto/); ml6 11:04 Pulse 70 MON; Resp 16; Pulse Ox 98% on R/A; ml6 11:34 BP 116 / 71 (auto/); ml6 11:34 Pulse 70 MON; Resp 16; Pulse Ox 97% on R/A; ml6 12:04 BP 122 / 65 (auto/); ml6 12:04 Pulse 72 MON; Resp 16; Pulse Ox 97% on R/A; ml6 12:34 BP 122 / 83 (auto/); ml6 12:34 Pulse 70 MON; Resp 16; Pulse Ox 97% on R/A; ml6 13:04 BP 110 / 71 (auto/); ml6 13:04 Pulse 72 MON; Resp 18; Temp 98.1(O); Pulse Ox 98% on R/A; Pain 4/10; ml6 14:16 BP 112 / 74; Pulse 70 MON; Resp 16; Temp 98.2(O); Pulse Ox 95% on R/A; Pain 0/10; ml6 05:39 Body Mass Index 27.25 (67.59 kg, 157.48 cm) js15 MDM: 06:16 Chest, 2 View (pa\E\lat) Ordered. EDMS 06:17 ECG WITH READING ER PHYS+CARDIAG ordered. EDMS 06:17 CBC with Diff Ordered. EDMS 06:17 MED Profile Ordered. EDMS 06:17 BNP Ordered. EDMS 06:17 Cardiac Marker Panel Ordered. EDMS 06:59 BNP Reviewed. br1 07:06 CBC with Diff Reviewed. br1 07:06 MED Profile Reviewed. br1 07:06 Cardiac Marker Panel Reviewed. br1 07:07 IV Saline Lock ordered. br1 07:07 Tank Setter Helper/Pulse Ox/q 30 min VS ordered. br1 07:12 BED REQUEST+ADM ordered. EDMS 07:47 Financial registration complete. lg 07:58 [facility] Payment Agreement was scanned into [employer] and attached to record. lg 09:07 Admission / Observation Status ordered. EDMS 09:07 ELECTROCARDIOGRAM ADULT ordered. EDMS 09:07 2 GRAM SODIUM DIET ordered. EDMS 09:08 CARDIAC INJURY PROFILE Ordered. EDMS 09:08 CARDIAC INJURY PROFILE Ordered. EDMS 09:08 TROPONIN Ordered. EDMS 09:08 TROPONIN Ordered. EDMS 09:08 URINALYSIS Ordered. EDMS 09:10 PARTIAL THROMBOPLASTIN TIME Ordered. EDMS 09:10 PROTHROMBIN TIME PROFILE\E\INR Ordered. EDMS 09:12 CT ANGIO CHEST Ordered. EDMS 09:18 OCCULT BLOOD STOOL SPECIMEN Ordered. EDMS 13:18 Acetaminophen Tablet 650 mg PO once; Per Dr. Kim ordered. ml6 16:09 T-Sheet-- Draft Copy was scanned into [employer] and attached to record. klr Administered Medications: 13:18 Drug: Acetaminophen 650 mg [acetaminophen 325 mg tablet (2 tabs)] Route: PO; ml6 Signatures: Dispatcher [employer] EDMS Fco Coley, RN RN cz Ericka Frost, Reg Reg lg Ghassan Reynolds MD MD br1 Roddy Jack RN RN ml6 Rosetta BahenaRN RN ld5 Justine Ga, ILIANA RN sls2 Tanesha Andrade,RN RN js15 Juanita Varma The chart was reviewed and I authenticate all verbal orders and agree with the evaluation and treatment provided.Attachments: 07:58 [facility] Payment Agreement lg 16:09 T-Sheet-- Draft Copy klr Chart Complete MTDD
--- NOTE | 2016-05-09 15:32 | EDDOCDS ---
Physician Documentation [facility] Name: Salomon Quinones Age: 85 yrs Sex: Male : 1930 Arrival Date: 05/07/2016 Time: 05:29 Bed Admit Hold Private MD: Alexandre Disposition: 05/07/16 08:39 Hospitalization ordered by Lynn Kim for Inpatient Admission. Preliminary diagnosis are Dyspnea - on exertion, rule out congestive heart failure, Left bundle-branch block, unspecified. - Bed requested for PCU. - Status is Inpatient Admission. ld5 - Condition is Stable. - Problem is new. - Symptoms are unchanged. Historical: - Allergies: Ciprofloxacin; - Home Meds: 1. metoprolol tartrate 25 mg Oral tab 2. Eliquis oral oral 3. atorvastatin 10 mg oral tab 1 tab once daily 4. spironolactone 25 mg Oral tab 5. Esomeprazole Magnesium Oral - PMHx: CAD; Hypertension; Kidney stones; Cancer, Prostate; GERD; - PSHx: CABG; Porcine valve replacement; Prostatectomy; lymph node removal; Lithotripsy; - Social history: Smoking status: Patient states former smoker of tobacco. No barriers to communication noted, The patient speaks fluent Georgian, Speaks appropriately for age. - Family history: Not pertinent. - : The pt / caregiver states he / she is on anticoagulants: Eliquis Home medication list is obtained from the patient. - Exposure Risk Screening:: None identified. Vital Signs: 05/07 05:36 BP 105 / 65 (auto/); cz 05:36 Pulse Ox 99% ; cz 05:39 BP 105 / 65; Pulse 70; Resp 22; Temp 98.2(O); Pulse Ox 94% on R/A; Weight 67.59 kg / js15 149.01 lbs; Height 5 ft. 2 in. (157.48 cm); Pain 0/10; 06:05 Pulse 72 MON; Pulse Ox 97% ; cz 06:06 BP 124 / 60 (auto/); cz 06:20 Pulse 74 MON; Pulse Ox 95% ; cz 06:21 BP 123 / 60 (auto/); cz 07:03 BP 103 / 65 (auto/); ml6 07:03 Pulse 72 MON; Resp 16; Pulse Ox 96% on R/A; Pain 0/10; ml6 09:34 BP 108 / 59 (auto/); ml6 09:34 Pulse 74 MON; Resp 16; Pulse Ox 98% on R/A; ml6 10:04 BP 117 / 63 (auto/); ml6 10:04 Pulse 74 MON; Resp 16; Pulse Ox 97% on R/A; ml6 10:34 BP 108 / 86 (auto/); ml6 10:34 Pulse 72 MON; Resp 16; Pulse Ox 98% on R/A; Pain 0/10; ml6 11:04 BP 127 / 60 (auto/); ml6 11:04 Pulse 70 MON; Resp 16; Pulse Ox 98% on R/A; ml6 11:34 BP 116 / 71 (auto/); ml6 11:34 Pulse 70 MON; Resp 16; Pulse Ox 97% on R/A; ml6 12:04 BP 122 / 65 (auto/); ml6 12:04 Pulse 72 MON; Resp 16; Pulse Ox 97% on R/A; ml6 12:34 BP 122 / 83 (auto/); ml6 12:34 Pulse 70 MON; Resp 16; Pulse Ox 97% on R/A; ml6 13:04 BP 110 / 71 (auto/); ml6 13:04 Pulse 72 MON; Resp 18; Temp 98.1(O); Pulse Ox 98% on R/A; Pain 4/10; ml6 14:16 BP 112 / 74; Pulse 70 MON; Resp 16; Temp 98.2(O); Pulse Ox 95% on R/A; Pain 0/10; ml6 05:39 Body Mass Index 27.25 (67.59 kg, 157.48 cm) js15 MDM: 06:16 Chest, 2 View (pa\E\lat) Ordered. EDMS 06:17 ECG WITH READING ER PHYS+CARDIAG ordered. EDMS 06:17 CBC with Diff Ordered. EDMS 06:17 MED Profile Ordered. EDMS 06:17 BNP Ordered. EDMS 06:17 Cardiac Marker Panel Ordered. EDMS 06:59 BNP Reviewed. br1 07:06 CBC with Diff Reviewed. br1 07:06 MED Profile Reviewed. br1 07:06 Cardiac Marker Panel Reviewed. br1 07:07 IV Saline Lock ordered. br1 07:07 Concrete Mixing Plant Laborer/Pulse Ox/q 30 min VS ordered. br1 07:12 BED REQUEST+ADM ordered. EDMS 07:47 Financial registration complete. lg 07:58 [facility] Payment Agreement was scanned into Preo and attached to record. lg 09:07 Admission / Observation Status ordered. EDMS 09:07 ELECTROCARDIOGRAM ADULT ordered. EDMS 09:07 2 GRAM SODIUM DIET ordered. EDMS 09:08 CARDIAC INJURY PROFILE Ordered. EDMS 09:08 CARDIAC INJURY PROFILE Ordered. EDMS 09:08 TROPONIN Ordered. EDMS 09:08 TROPONIN Ordered. EDMS 09:08 URINALYSIS Ordered. EDMS 09:10 PARTIAL THROMBOPLASTIN TIME Ordered. EDMS 09:10 PROTHROMBIN TIME PROFILE\E\INR Ordered. EDMS 09:12 CT ANGIO CHEST Ordered. EDMS 09:18 OCCULT BLOOD STOOL SPECIMEN Ordered. EDMS 13:18 Acetaminophen Tablet 650 mg PO once; Per Dr. Kim ordered. ml6 16:09 T-Sheet-- Draft Copy was scanned into Preo and attached to record. klr Administered Medications: 13:18 Drug: Acetaminophen 650 mg [acetaminophen 325 mg tablet (2 tabs)] Route: PO; ml6 Signatures: Dispatcher [employer] EDMS Fco Coley, RN RN cz Ericka Frost, Reg Reg lg Ghassan Reynolds MD MD br1 Roddy Jack RN RN ml6 Rosetta BahenaRN RN ld5 Justine Ga, ILIANA RN sls2 Tanesha Andrade,RN RN js15 Juanita Varma The chart was reviewed and I authenticate all verbal orders and agree with the evaluation and treatment provided.Attachments: 07:58 [facility] Payment Agreement lg 16:09 T-Sheet-- Draft Copy klr Chart Complete MTDD
--- NOTE | 2016-05-11 08:49 | EDDOCDS ---
Nurse's Notes [facility] Name: Salomon Quinones Age: 85 yrs Sex: Male : 1930 Arrival Date: 05/07/2016 Time: 05:29 Bed Admit Hold Private MD: Alexandre Diagnosis: Dyspnea-on exertion, rule out congestive heart failure;Left bundle-branch block, unspecified Presentation: 05/07 05:31 Presenting complaint: EMS states: Pt got up this morning to use restroom and jsJesús noticed when he came back to bed that he was breathing rapidly; upon EMS arrival pt denies pain or shortness of breath; hx of CABG/porcine valve replacement in 01/2016. Suicide/Homicide risk assessment- the patient denies having any suicidal and/or homicidal ideations and does not present with any other emotional, behavioral or mental health complaints. Status: Patient is not a media services coordinator or dependent. Transition of care: patient was not received from another setting of care. 05:31 Acuity: NITIN Level 3 [facility] 05:31 Method Of Arrival: Ambulance [facility] 06:35 Adult Sepsis Screening: The patient does not have new or worsening altered mentation. cz Patient has a respiratory rate of greater than or equal to 22 (1 point). Systolic blood pressure is greater than 100. Patient has a qSOFA score of 1- Negative Sepsis Screen. Triage Assessment: 05:41 General: Appears in no apparent distress, Behavior is appropriate for age, cooperative. js15 Pain: Denies pain. The patient is triaged at the bedside. See Assessment in Nurses Notes section of ED record. Neurological: Level of Consciousness is awake, alert, obeys commands, Oriented to person, place, time. Respiratory: Onset: The symptoms/episode began/occurred this morning, Airway is patent Respiratory effort is even, labored, Respiratory pattern is regular, symmetrical. Derm: Skin is pink, warm & dry. Historical: - Allergies: Ciprofloxacin; - Home Meds: 1. metoprolol tartrate 25 mg Oral tab 2. Eliquis oral oral 3. atorvastatin 10 mg oral tab 1 tab once daily 4. spironolactone 25 mg Oral tab 5. Esomeprazole Magnesium Oral - PMHx: CAD; Hypertension; Kidney stones; Cancer, Prostate; GERD; - PSHx: CABG; Porcine valve replacement; Prostatectomy; lymph node removal; Lithotripsy; - Social history: Smoking status: Patient states former smoker of tobacco. No barriers to communication noted, The patient speaks fluent Panamanian, Speaks appropriately for age. - Family history: Not pertinent. - : The pt / caregiver states he / she is on anticoagulants: Eliquis Home medication list is obtained from the patient. - Exposure Risk Screening:: None identified. Screenin:45 Screening information is obtained from the patient. Fall risk: At risk due to age. cz Assistance ADL's: requires no assistance with activities of daily living. Abuse/DV Screen: The patient / caregiver reports he/she is: not in a situation that causes fear, pain or injury. Nutritional screening: No deficits noted. home support is adequate. 05:51 Advance Directives: Currently, there is a health care proxy, daughter Janis Deleon. cz There is no active DNR order. There is no living will. There is an active Power of Horticultural Nursery Assistant, Janis Deleon<daughter>. Assessment: 05:45 Adult Sepsis Screening: The patient does not have new or worsening altered mentation. cz Patient's respiratory rate is less than 22. Systolic blood pressure is greater than 100. Patient has a qSOFA score of 0- Negative Sepsis Screen. General: Appears in no apparent distress, comfortable, Behavior is appropriate for age. Cardiovascular: Capillary refill < 3 seconds Rhythm is regular. Respiratory: Airway is patent Respiratory effort is even, unlabored, Respiratory pattern is regular, Breath sounds are clear bilaterally. 07:00 General: Appears in no apparent distress, comfortable, Behavior is appropriate for age, ml6 cooperative. Pain: Denies pain. Neurological: No deficits noted. Level of Consciousness is awake, alert, Oriented to person, place, time. Cardiovascular: No deficits noted. Capillary refill < 3 seconds is brisk in bilateral fingers toes Heart tones S1 S2 S3 present Murmur present Edema is absent. Pulses are all present. Rhythm is regular Chest pain is denied. GI: No deficits noted. Abdomen is flat, non- distended Bowel sounds present X 4 quads. Abd is soft and non tender X 4 quads. 08:00 Reassessment: Patient appears in no apparent distress at this time. Patient denies pain ml6 at this time. Patient states feeling better. Patient states symptoms have improved. 09:00 Reassessment: Patient appears in no apparent distress at this time. Patient denies pain ml6 at this time. Patient states feeling better. Patient states symptoms have improved. 10:00 General: Appears in no apparent distress, Behavior is appropriate for age, cooperative. ml6 Pain: Denies pain. Neurological: No deficits noted. Level of Consciousness is awake, alert, Oriented to person, place, time. Cardiovascular: No deficits noted. Capillary refill < 3 seconds is brisk in bilateral fingers toes Heart tones S1 S2 present. Respiratory: No deficits noted. Airway is patent Respiratory effort is even, unlabored, Respiratory pattern is regular, symmetrical, Breath sounds are clear bilaterally. GI: No deficits noted. 11:00 Reassessment: Patient appears in no apparent distress at this time. Patient denies pain ml6 at this time. Patient states feeling better. Patient states symptoms have improved. patient sleeping soudnly resp unlabored. 12:00 Reassessment: Patient appears in no apparent distress at this time. Patient denies pain ml6 at this time. Patient states feeling better. Patient states symptoms have improved. patient sleeping soundly resp unlabored. 13:00 General: Appears in no apparent distress, Behavior is appropriate for age, cooperative. ml6 Pain: Location: anterior aspect of right shoulder and posterior aspect of right shoulder Pain currently is 4 out of 10 on a pain scale. Pain does not radiate. Quality of pain is described as aching, Pain began years ago. Is intermittent chronic Alleviated by medications, rest, Aggravated by increased activity. Neurological: No deficits noted. Cardiovascular: No deficits noted. Capillary refill < 3 seconds is brisk in bilateral fingers toes. Respiratory: No deficits noted. Airway is patent Respiratory effort is even, unlabored, Respiratory pattern is regular, symmetrical, Breath sounds are clear bilaterally. GI: No deficits noted. Abdomen is flat, non- distended Bowel sounds present X 4 quads. Abd is soft and non tender X 4 quads. 14:17 General: Appears in no apparent distress, Behavior is appropriate for age, cooperative. ml6 Pain: Denies pain. Neurological: No deficits noted. Level of Consciousness is awake, alert, Oriented to person, place, time. Cardiovascular: No deficits noted. Capillary refill < 3 seconds is brisk in bilateral fingers toes Heart tones S1 S2 present Edema is absent. Pulses are all present. Rhythm is regular. Respiratory: No deficits noted. Airway is patent Respiratory effort is even, unlabored, Respiratory pattern is regular, symmetrical. Vital Signs: 05:36 BP 105 / 65 (auto/); cz 05:36 Pulse Ox 99% ; cz 05:39 BP 105 / 65; Pulse 70; Resp 22; Temp 98.2(O); Pulse Ox 94% on R/A; Weight 67.59 kg; js15 Height 5 ft. 2 in. (157.48 cm); Pain 0/10; 06:05 Pulse 72 MON; Pulse Ox 97% ; cz 06:06 BP 124 / 60 (auto/); cz 06:20 Pulse 74 MON; Pulse Ox 95% ; cz 06:21 BP 123 / 60 (auto/); cz 07:03 BP 103 / 65 (auto/); ml6 07:03 Pulse 72 MON; Resp 16; Pulse Ox 96% on R/A; Pain 0/10; ml6 09:34 BP 108 / 59 (auto/); ml6 09:34 Pulse 74 MON; Resp 16; Pulse Ox 98% on R/A; ml6 10:04 BP 117 / 63 (auto/); ml6 10:04 Pulse 74 MON; Resp 16; Pulse Ox 97% on R/A; ml6 10:34 BP 108 / 86 (auto/); ml6 10:34 Pulse 72 MON; Resp 16; Pulse Ox 98% on R/A; Pain 0/10; ml6 11:04 BP 127 / 60 (auto/); ml6 11:04 Pulse 70 MON; Resp 16; Pulse Ox 98% on R/A; ml6 11:34 BP 116 / 71 (auto/); ml6 11:34 Pulse 70 MON; Resp 16; Pulse Ox 97% on R/A; ml6 12:04 BP 122 / 65 (auto/); ml6 12:04 Pulse 72 MON; Resp 16; Pulse Ox 97% on R/A; ml6 12:34 BP 122 / 83 (auto/); ml6 12:34 Pulse 70 MON; Resp 16; Pulse Ox 97% on R/A; ml6 13:04 BP 110 / 71 (auto/); ml6 13:04 Pulse 72 MON; Resp 18; Temp 98.1(O); Pulse Ox 98% on R/A; Pain 4/10; ml6 14:16 BP 112 / 74; Pulse 70 MON; Resp 16; Temp 98.2(O); Pulse Ox 95% on R/A; Pain 0/10; ml6 05:39 Body Mass Index 27.25 (67.59 kg, 157.48 cm) js15 Vitals: 05:39 Log In Time N/A - ambulance arrival. js15 ED Course: 05:30 Patient visited by Balbir Higuera, Concierge Manager. ml3 05:30 Alexandre is Private Physician. ml3 05:30 Patient moved to Waiting ml3 05:30 Patient moved to 17 ml3 05:35 Ion Barajas DO is Attending Physician. cs11 05:35 Triage Initiated js15 05:36 Patient visited by Ion Barajas DO. cs11 05:45 The patient / caregiver is instructed regarding the plan of care and ED course. cz 05:45 Maintain field IV. Site clean & dry. Gauge & site: 20jelco RAC. No procedures done that cz require assistance. 06:29 Patient visited by Fco Coley RN. cz 06:29 Cardiac Marker Panel Sent. cz 06:29 BNP Sent. cz 06:29 MED Profile Sent. cz 06:29 CBC with Diff Sent. cz 06:30 EKG done. (by ED staff). Reviewed by Ion Barajas DO. cln 06:31 Patient visited by Aundrea Wynn PCA. cln 06:58 Patient visited by Roddy Jack, ILIANA. ml6 07:06 Attending Physician role handed off by Ion Barajas DO br1 07:06 Ghassan Reynolds MD is Attending Physician. br1 07:31 Patient visited by Roddy Jack RN. ml6 07:58 PENDING SALE TO [facility] Payment Agreement was scanned into [employer] and attached to record. lg 08:06 Patient visited by Roddy Jack, ILIANA. ml6 08:39 Lynn Kim is Hospitalizing Provider. br1 09:39 Patient moved to Admit Hold jc4 09:49 Diet: Patient given regular meal. dem1 09:50 Patient visited by Melania Calhoun. dem1 13:26 Patient visited by Melania Calhoun. dem1 13:26 Repositioned patient. Cleaned of incontinence. Linen changed. dem1 16:09 T-Sheet-- Draft Copy was scanned into [employer] and attached to record. r Administered Medications: 13:18 Drug: Acetaminophen 650 mg [acetaminophen 325 mg tablet (2 tabs)] Route: PO; ml6 Order Results: Lab Order: CBC with Diff; SPEC'M 05/07/16 06:20 Test: WHITE BLOOD COUNT; Value: 6.3; Range: 4.0-10.0; Units: K/mm3; Status: F Test: RED BLOOD COUNT; Value: 4.43; Range: 4.30-6.10; Units: M/mm3; Status: F Test: HEMOGLOBIN; Value: 10.9; Range: 14.0-18.0; Abnormal: Below low normal; Units: g/dl; Status: F Test: HEMATOCRIT; Value: 35.1; Range: 42.0-52.0; Abnormal: Below low normal; Units: %; Status: F Test: MEAN CORPUSCULAR VOLUME; Value: 79.2; Range: 80.0-96.0; Abnormal: Below low normal; Units: fl; Status: F Test: MEAN CORPUSCULAR HEMOGLOBIN; Value: 24.6; Range: 27.0-33.0; Abnormal: Below low normal; Units: pg; Status: F Test: MEAN CORPUSCULAR HGB CONC; Value: 31.1; Range: 32.0-36.5; Abnormal: Below low normal; Units: g/dl; Status: F Test: RED CELL DISTRIBUTION WIDTH; Value: 16.9; Range: 11.5-14.5; Abnormal: Above high normal; Units: %; Status: F Test: PLATELET COUNT, AUTOMATED; Value: 191; Range: 150-450; Units: k/mm3; Status: F Test: NEUTROPHILS %; Value: 74.3; Range: 36.0-66.0; Abnormal: Above high normal; Units: %; Status: F Test: LYMPH %; Value: 14.4; Range: 24.0-44.0; Abnormal: Below low normal; Units: %; Status: F Test: MONO %; Value: 6.2; Range: 0.0-5.0; Abnormal: Above high normal; Units: %; Status: F Test: EOS %; Value: 1.6; Range: 0.0-3.0; Units: %; Status: F Test: BASO %; Value: 0.5; Range: 0.0-1.0; Units: %; Status: F Test: LARGE UNSTAINED CELL %; Value: 3.0; Range: 0.0-4.0; Units: %; Status: F Test: NEUTROPHILS #; Value: 4.7; Range: 1.8-7.7; Units: K/mm3; Status: F Test: LYMPH #; Value: 0.9; Range: 1.5-4.5; Abnormal: Below low normal; Units: K/mm3; Status: F Test: MONO #; Value: 0.4; Range: 0.0-0.8; Units: K/mm3; Status: F Test: EOS #; Value: 0.1; Range: 0.0-0.50; Units: K/mm3; Status: F Test: BASO #; Value: 0.0; Range: 0.0-0.2; Units: K/mm3; Status: F Test: LARGE UNSTAINED CELL #; Value: 0.2; Range: 0.0-0.4; Units: K/mm3; Status: F Lab Order: MED Profile; SPEC'M 05/07/16 06:20 Test: GLUCOSE, FASTING; Value: 99; Range: 83-110; Units: MG/DL; Status: F Test: BLOOD UREA NITROGEN; Value: 21; Range: 7-18; Abnormal: Above high normal; Units: MG/DL; Status: F Test: CREATININE FOR GFR; Value: 0.98; Range: 0.70-1.30; Units: MG/DL; Status: F Test: GLOMERULAR FILTRATION RATE; Value: > 60.0; Range: >35; Status: F Test: SODIUM LEVEL; Value: 140; Range: 136-145; Units: MEQ/L; Status: F Test: POTASSIUM SERUM; Value: 4.3; Range: 3.5-5.1; Units: MEQ/L; Status: F Test: CHLORIDE LEVEL; Value: 104; Range: 98-107; Units: MEQ/L; Status: F Test: CARBON DIOXIDE LEVEL; Value: 28; Range: 21-32; Units: MEQ/L; Status: F Test: ANION GAP; Value: 8; Range: 8-16; Units: MEQ/L; Status: F Test: CALCIUM LEVEL; Value: 9.3; Range: 8.8-10.2; Units: MG/DL; Status: F Test Note: ; Units are mL/min/1.73 m2 Chronic Kidney Disease Staging per NKF: Stage I & II GFR >=60 Normal to Mildly Decreased Stage III GFR 30-59 Moderately Decreased Stage IV GFR 15-29 Severely Decreased Stage V GFR <15 Very Little GFR Left ESRD GFR <15 on MICRO COMPUTER SPECIALIST Lab Order: BNP; [facility] 05/07/16 06:20 Test: BRAIN NATRIURETIC PEPTIDE; Value: 370; Range: <100; Abnormal: Above high normal; Units: PG/ML; Status: F Lab Order: Cardiac Marker Panel; [facility] 05/07/16 06:20 Test: CPK CREATINE PHOSPHOKINASE; Value: 14; Range: 39-308; Abnormal: Below low normal; Units: U/L; Status: F Test: CK-MB VALUE MASS; Value: 1.0; Range: 0.0-3.6; Units: NG/ML; Status: F Test: MB/CK RELATIVE INDEX; Value: 7.14; Range: < OR =4; Abnormal: Above high normal; Status: F Test: TROPONIN I; Value: 0.15; Range: < 0.10; Abnormal: Above high normal; Units: NG/ML; Status: F Test Note: ; DIAGNOSIS CRITERIA MMB ng/ml Relative Index (RI) NON-AMI < or = 5 N/A ENAMORADO ZONE > 5 < or = 4 AMI > 5 > 4 Lab Order: CARDIAC INJURY PROFILE; [facility] 05/07/16 12:25 Test: CPK CREATINE PHOSPHOKINASE; Value: 13; Range: 39-308; Abnormal: Below low normal; Units: U/L; Status: F Test: CK-MB VALUE MASS; Value: 1.0; Range: 0.0-3.6; Units: NG/ML; Status: F Test: MB/CK RELATIVE INDEX; Value: 7.69; Range: < OR =4; Abnormal: Above high normal; Status: F Test Note: ; DIAGNOSIS CRITERIA MMB ng/ml Relative Index (RI) NON-AMI < or = 5 N/A ENAMORADO ZONE > 5 < or = 4 AMI > 5 > 4 Lab Order: TROPONIN; [facility] 05/07/16 12:25 Test: TROPONIN I; Value: 0.15; Range: < 0.10; Abnormal: Above high normal; Units: NG/ML; Status: F Test Note: ; Troponin I Reference Interval for Root4 LOCI: 99th Percentile= 0.00-0.045 ng/ml Risk Stratification: <= 0.10 ng/ml Decreased Risk for Adverse Clinical Events. 0.10-1.50 ng/ml Increased Risk for Adverse Clinical Events. Evaluation of additional criterion and/or repeat testing in 2-6 hours is suggested to rule out myocardial damage. >= 1.50 ng/ml Indicative of Myocardial Injury. Lab Order: PARTIAL THROMBOPLASTIN TIME; [facility] 05/07/16 10:09 Test: PARTIAL THROMBOPLASTIN TIME; Value: 40.4; Range: 26.6-37.1; Abnormal: Above high normal; Units: SECONDS; Status: F Lab Order: PROTHROMBIN TIME PROFILE\E\INR; [facility] 05/07/16 10:09 Test: PROTHROMBIN TIME; Value: 17.7; Range: 12.3-14.5; Abnormal: Above high normal; Units: SECONDS; Status: F Test: INR; Value: 1.45; Status: F Test Note: ; THERAPUTIC HUMAN INR VALUES INDICATIONS NORMAL RANGES PROPHYLAXIS/TREATMENT OF: VENOUS THROMBOSIS 2.0-3.0 PULMONARY EMBOLISM 2.0-3.0 PREVENTION OF SYSTEMIC EMBOLISM FROM: TISSUE HEART VALVES 2.0-3.0 ACUTE MYOCARDIAL INFARCTION 2.0-3.0 VALVULAR HEART DISEASE 2.0-3.0 ATRIAL FIBRILLATION 2.0-3.0 MECHANICAL VALVES(HIGH RISK) 2.5-3.5 RECURRENT MYOCARDIAL INFARCTION 2.5-3.5 Outcome: 08:39 Decision to Hospitalize by Provider. br1 13:23 CT Study completed. Property :Personal belongings accompany Pt. ml6 13:23 Discharge Assessment: patient administered narcotics - no. ml6 13:25 Admission hand-off: Report called to Face to FAce report given to ILIANA Cesar, SUAR Faxed ml6 and tubed x 2. 14:18 The following High Risk Discharge criteria are identified: None. Admitted to PCU ml6 accompanied by nurse, accompanied by tech, via stretcher, on monitor, with chart. Condition: stable. 14:31 Patient left the ED. ld5 Signatures: Fco Coley, RN RN cz Ericka Frost, Reg Reg lg Kalen, Balbir, Concierge Manager Unit ml3 Ghassan Reynolds MD MD br1 Roddy Jack RN RN ml6 Rosetta Bahena RN RN ld5 Nelida Chan RN RN jc4 Melania Calhoun dem1 Ion Barajas, DO HEWITT cs11 Tanesha AndradeRN RN js15 Aundrea Wynn, PASTRY COOK HELPER PASTRY COOK HELPER cln Juanita Varma Chart Complete MTDD
--- NOTE | 2016-05-11 08:49 | EDDOCDS ---
Physician Documentation [facility] Name: Salomon Quinones Age: 85 yrs Sex: Male : 1930 Arrival Date: 05/07/2016 Time: 05:29 Bed Admit Hold Private MD: Alexandre Disposition: 05/07/16 08:39 Hospitalization ordered by Lynn Kim for Inpatient Admission. Preliminary diagnosis are Dyspnea - on exertion, rule out congestive heart failure, Left bundle-branch block, unspecified. - Bed requested for PCU. - Status is Inpatient Admission. ld5 - Condition is Stable. - Problem is new. - Symptoms are unchanged. Historical: - Allergies: Ciprofloxacin; - Home Meds: 1. metoprolol tartrate 25 mg Oral tab 2. Eliquis oral oral 3. atorvastatin 10 mg oral tab 1 tab once daily 4. spironolactone 25 mg Oral tab 5. Esomeprazole Magnesium Oral - PMHx: CAD; Hypertension; Kidney stones; Cancer, Prostate; GERD; - PSHx: CABG; Porcine valve replacement; Prostatectomy; lymph node removal; Lithotripsy; - Social history: Smoking status: Patient states former smoker of tobacco. No barriers to communication noted, The patient speaks fluent Macedonian, Speaks appropriately for age. - Family history: Not pertinent. - : The pt / caregiver states he / she is on anticoagulants: Eliquis Home medication list is obtained from the patient. - Exposure Risk Screening:: None identified. Vital Signs: 05/07 05:36 BP 105 / 65 (auto/); cz 05:36 Pulse Ox 99% ; cz 05:39 BP 105 / 65; Pulse 70; Resp 22; Temp 98.2(O); Pulse Ox 94% on R/A; Weight 67.59 kg / js15 149.01 lbs; Height 5 ft. 2 in. (157.48 cm); Pain 0/10; 06:05 Pulse 72 MON; Pulse Ox 97% ; cz 06:06 BP 124 / 60 (auto/); cz 06:20 Pulse 74 MON; Pulse Ox 95% ; cz 06:21 BP 123 / 60 (auto/); cz 07:03 BP 103 / 65 (auto/); ml6 07:03 Pulse 72 MON; Resp 16; Pulse Ox 96% on R/A; Pain 0/10; ml6 09:34 BP 108 / 59 (auto/); ml6 09:34 Pulse 74 MON; Resp 16; Pulse Ox 98% on R/A; ml6 10:04 BP 117 / 63 (auto/); ml6 10:04 Pulse 74 MON; Resp 16; Pulse Ox 97% on R/A; ml6 10:34 BP 108 / 86 (auto/); ml6 10:34 Pulse 72 MON; Resp 16; Pulse Ox 98% on R/A; Pain 0/10; ml6 11:04 BP 127 / 60 (auto/); ml6 11:04 Pulse 70 MON; Resp 16; Pulse Ox 98% on R/A; ml6 11:34 BP 116 / 71 (auto/); ml6 11:34 Pulse 70 MON; Resp 16; Pulse Ox 97% on R/A; ml6 12:04 BP 122 / 65 (auto/); ml6 12:04 Pulse 72 MON; Resp 16; Pulse Ox 97% on R/A; ml6 12:34 BP 122 / 83 (auto/); ml6 12:34 Pulse 70 MON; Resp 16; Pulse Ox 97% on R/A; ml6 13:04 BP 110 / 71 (auto/); ml6 13:04 Pulse 72 MON; Resp 18; Temp 98.1(O); Pulse Ox 98% on R/A; Pain 4/10; ml6 14:16 BP 112 / 74; Pulse 70 MON; Resp 16; Temp 98.2(O); Pulse Ox 95% on R/A; Pain 0/10; ml6 05:39 Body Mass Index 27.25 (67.59 kg, 157.48 cm) js15 MDM: 06:16 Chest, 2 View (pa\E\lat) Ordered. EDMS 06:17 ECG WITH READING ER PHYS+CARDIAG ordered. EDMS 06:17 CBC with Diff Ordered. EDMS 06:17 MED Profile Ordered. EDMS 06:17 BNP Ordered. EDMS 06:17 Cardiac Marker Panel Ordered. EDMS 06:59 BNP Reviewed. br1 07:06 CBC with Diff Reviewed. br1 07:06 MED Profile Reviewed. br1 07:06 Cardiac Marker Panel Reviewed. br1 07:07 IV Saline Lock ordered. br1 07:07 Export Freight Manager/Pulse Ox/q 30 min VS ordered. br1 07:12 BED REQUEST+ADM ordered. EDMS 07:47 Financial registration complete. lg 07:58 [facility] Payment Agreement was scanned into [employer] and attached to record. lg 09:07 Admission / Observation Status ordered. EDMS 09:07 ELECTROCARDIOGRAM ADULT ordered. EDMS 09:07 2 GRAM SODIUM DIET ordered. EDMS 09:08 CARDIAC INJURY PROFILE Ordered. EDMS 09:08 CARDIAC INJURY PROFILE Ordered. EDMS 09:08 TROPONIN Ordered. EDMS 09:08 TROPONIN Ordered. EDMS 09:08 URINALYSIS Ordered. EDMS 09:10 PARTIAL THROMBOPLASTIN TIME Ordered. EDMS 09:10 PROTHROMBIN TIME PROFILE\E\INR Ordered. EDMS 09:12 CT ANGIO CHEST Ordered. EDMS 09:18 OCCULT BLOOD STOOL SPECIMEN Ordered. EDMS 13:18 Acetaminophen Tablet 650 mg PO once; Per Dr. Kim ordered. ml6 16:09 T-Sheet-- Draft Copy was scanned into [employer] and attached to record. klr Administered Medications: 13:18 Drug: Acetaminophen 650 mg [acetaminophen 325 mg tablet (2 tabs)] Route: PO; ml6 Signatures: Dispatcher [employer] EDMS Fco Coley, RN RN cz Ericka Frost, Reg Reg lg Ghassan Reynolds MD MD br1 Roddy Jack RN RN ml6 Rosetta BahenaRN RN ld5 Justine Ga, ILIANA RN sls2 Tanesha Andrade,RN RN js15 Juanita Varma The chart was reviewed and I authenticate all verbal orders and agree with the evaluation and treatment provided.Attachments: 07:58 [facility] Payment Agreement lg 16:09 T-Sheet-- Draft Copy klr Chart Complete MTDD
--- NOTE | 2016-05-11 08:49 | EDDOCDS ---
Physician Documentation [facility] Name: Salomon Quinones Age: 85 yrs Sex: Male : 1930 Arrival Date: 05/07/2016 Time: 05:29 Bed Admit Hold Private MD: Alexandre Disposition: 05/07/16 08:39 Hospitalization ordered by Lynn Kim for Inpatient Admission. Preliminary diagnosis are Dyspnea - on exertion, rule out congestive heart failure, Left bundle-branch block, unspecified. - Bed requested for PCU. - Status is Inpatient Admission. ld5 - Condition is Stable. - Problem is new. - Symptoms are unchanged. Historical: - Allergies: Ciprofloxacin; - Home Meds: 1. metoprolol tartrate 25 mg Oral tab 2. Eliquis oral oral 3. atorvastatin 10 mg oral tab 1 tab once daily 4. spironolactone 25 mg Oral tab 5. Esomeprazole Magnesium Oral - PMHx: CAD; Hypertension; Kidney stones; Cancer, Prostate; GERD; - PSHx: CABG; Porcine valve replacement; Prostatectomy; lymph node removal; Lithotripsy; - Social history: Smoking status: Patient states former smoker of tobacco. No barriers to communication noted, The patient speaks fluent Mauritian, Speaks appropriately for age. - Family history: Not pertinent. - : The pt / caregiver states he / she is on anticoagulants: Eliquis Home medication list is obtained from the patient. - Exposure Risk Screening:: None identified. Vital Signs: 05/07 05:36 BP 105 / 65 (auto/); cz 05:36 Pulse Ox 99% ; cz 05:39 BP 105 / 65; Pulse 70; Resp 22; Temp 98.2(O); Pulse Ox 94% on R/A; Weight 67.59 kg / js15 149.01 lbs; Height 5 ft. 2 in. (157.48 cm); Pain 0/10; 06:05 Pulse 72 MON; Pulse Ox 97% ; cz 06:06 BP 124 / 60 (auto/); cz 06:20 Pulse 74 MON; Pulse Ox 95% ; cz 06:21 BP 123 / 60 (auto/); cz 07:03 BP 103 / 65 (auto/); ml6 07:03 Pulse 72 MON; Resp 16; Pulse Ox 96% on R/A; Pain 0/10; ml6 09:34 BP 108 / 59 (auto/); ml6 09:34 Pulse 74 MON; Resp 16; Pulse Ox 98% on R/A; ml6 10:04 BP 117 / 63 (auto/); ml6 10:04 Pulse 74 MON; Resp 16; Pulse Ox 97% on R/A; ml6 10:34 BP 108 / 86 (auto/); ml6 10:34 Pulse 72 MON; Resp 16; Pulse Ox 98% on R/A; Pain 0/10; ml6 11:04 BP 127 / 60 (auto/); ml6 11:04 Pulse 70 MON; Resp 16; Pulse Ox 98% on R/A; ml6 11:34 BP 116 / 71 (auto/); ml6 11:34 Pulse 70 MON; Resp 16; Pulse Ox 97% on R/A; ml6 12:04 BP 122 / 65 (auto/); ml6 12:04 Pulse 72 MON; Resp 16; Pulse Ox 97% on R/A; ml6 12:34 BP 122 / 83 (auto/); ml6 12:34 Pulse 70 MON; Resp 16; Pulse Ox 97% on R/A; ml6 13:04 BP 110 / 71 (auto/); ml6 13:04 Pulse 72 MON; Resp 18; Temp 98.1(O); Pulse Ox 98% on R/A; Pain 4/10; ml6 14:16 BP 112 / 74; Pulse 70 MON; Resp 16; Temp 98.2(O); Pulse Ox 95% on R/A; Pain 0/10; ml6 05:39 Body Mass Index 27.25 (67.59 kg, 157.48 cm) js15 MDM: 06:16 Chest, 2 View (pa\E\lat) Ordered. EDMS 06:17 ECG WITH READING ER PHYS+CARDIAG ordered. EDMS 06:17 CBC with Diff Ordered. EDMS 06:17 MED Profile Ordered. EDMS 06:17 BNP Ordered. EDMS 06:17 Cardiac Marker Panel Ordered. EDMS 06:59 BNP Reviewed. br1 07:06 CBC with Diff Reviewed. br1 07:06 MED Profile Reviewed. br1 07:06 Cardiac Marker Panel Reviewed. br1 07:07 IV Saline Lock ordered. br1 07:07 Packager Machine/Pulse Ox/q 30 min VS ordered. br1 07:12 BED REQUEST+ADM ordered. EDMS 07:47 Financial registration complete. lg 07:58 [facility] Payment Agreement was scanned into [employer] and attached to record. lg 09:07 Admission / Observation Status ordered. EDMS 09:07 ELECTROCARDIOGRAM ADULT ordered. EDMS 09:07 2 GRAM SODIUM DIET ordered. EDMS 09:08 CARDIAC INJURY PROFILE Ordered. EDMS 09:08 CARDIAC INJURY PROFILE Ordered. EDMS 09:08 TROPONIN Ordered. EDMS 09:08 TROPONIN Ordered. EDMS 09:08 URINALYSIS Ordered. EDMS 09:10 PARTIAL THROMBOPLASTIN TIME Ordered. EDMS 09:10 PROTHROMBIN TIME PROFILE\E\INR Ordered. EDMS 09:12 CT ANGIO CHEST Ordered. EDMS 09:18 OCCULT BLOOD STOOL SPECIMEN Ordered. EDMS 13:18 Acetaminophen Tablet 650 mg PO once; Per Dr. Kim ordered. ml6 16:09 T-Sheet-- Draft Copy was scanned into [employer] and attached to record. klr Administered Medications: 13:18 Drug: Acetaminophen 650 mg [acetaminophen 325 mg tablet (2 tabs)] Route: PO; ml6 Signatures: Dispatcher [employer] EDMS Fco Coley, RN RN cz Ericka Frost, Reg Reg lg Ghassan Reynolds MD MD br1 Roddy Jack RN RN ml6 Rosetta BahenaRN RN ld5 Justine Ga, ILIANA RN sls2 Tanesha Andrade,RN RN js15 Juanita Varma The chart was reviewed and I authenticate all verbal orders and agree with the evaluation and treatment provided.Attachments: 07:58 [facility] Payment Agreement lg 16:09 T-Sheet-- Draft Copy klr Chart Complete MTDD
== END 2016-05-08 16:40 | disposition home or self-care (01) | DRG 293 ==
LOC: M ED 05:29 → M ED INP 09:03 → M PCU 14:27
PROVIDERS: ADMIT Internal Medicine; ATTEND Internal Medicine
DX: I50.21 Acute systolic (congestive) heart failure (principal); I48.91 Unspecified atrial fibrillation; I10 Essential (primary) hypertension; E78.5 Hyperlipidemia, unspecified; K21.9 Gastro-esophageal reflux disease without esophagitis; D50.9 Iron deficiency anemia, unspecified; Z79.01 Long term (current) use of anticoagulants; I25.10 Atherosclerotic heart disease of native coronary artery without angina pectoris; Z85.46 Personal history of malignant neoplasm of prostate; Z79.899 Other long term (current) drug therapy; K44.9 Diaphragmatic hernia without obstruction or gangrene

== ENCOUNTER → 2016-09-26 | Outpatient (REF) | payer OTHER ==
[~2016-09-26] MED LIST: ACET50TAOT PO; ALPH0.156 OU; ATOR1TAB19 PO; CENTTAB PO; ELIQ5TAB PO; METO12TA PO; NEXI20CA PO; SPIR25TA2 PO
[2016-09-26 21:18] LABS: BASO % 0.6 % (0.0-1.0); EOS # 0.1 K/mm3 (0.0-0.50); EOS % 1.6 % (0.0-3.0); LARGE UNSTAINED CELL # 0.1 K/mm3 (0.0-0.4); LARGE UNSTAINED CELL % 1.8 % (0.0-4.0); LYMPH # 1.3 K/mm3 (1.5-4.5); MEAN CORPUSCULAR HEMOGLOBIN 27.3 pg (27.0-33.0); MEAN CORPUSCULAR HGB CONC 31.7 g/dl (32.0-36.5); MEAN CORPUSCULAR VOLUME 86.1 fl (80.0-96.0); MONO # 0.4 K/mm3 (0.0-0.8); MONO % 6.1 % (0.0-5.0); NEUTROPHILS # 5.3 K/mm3 (1.8-7.7); PLATELET COUNT, AUTOMATED 139 k/mm3 (150-450); RED CELL DISTRIBUTION WIDTH 16.7 % (11.5-14.5); WHITE BLOOD COUNT 7.2 K/mm3 (4.0-10.0)
[2016-09-26 21:22] LABS: ANION GAP 5 MEQ/L (8-16); BLOOD UREA NITROGEN 19 MG/DL (7-18); CALCIUM LEVEL 9.5 MG/DL (8.8-10.2); CARBON DIOXIDE LEVEL 29 MEQ/L (21-32); CHLORIDE LEVEL 102 MEQ/L (98-107); GLOMERULAR FILTRATION RATE > 60.0 (>35); GLUCOSE, FASTING 95 MG/DL (83-110); POTASSIUM SERUM 4.5 MEQ/L (3.5-5.1); SODIUM LEVEL 136 MEQ/L (136-145)
== END ==
LOC: M LAB REF 20:15
PROVIDERS: ATTEND Physician Assistant
DX: R53.83 Other fatigue (principal); N39.0 Urinary tract infection, site not specified

== ENCOUNTER → 2016-11-07 | Outpatient (CLI) | payer OTHER ==
[~2016-11-07] MED LIST changes: +ASPI81TA21 PO; +FURO20TA2 PO; -METO12TA PO; +METO1TAB87 PO; +VITMTA PO
[2016-11-07 13:02] LABS: MEAN CORPUSCULAR HEMOGLOBIN 27.2 pg (27.0-33.0); MEAN CORPUSCULAR HGB CONC 32.2 g/dl (32.0-36.5); MEAN CORPUSCULAR VOLUME 84.4 fl (80.0-96.0); RED CELL DISTRIBUTION WIDTH 16.1 % (11.5-14.5)
[2016-11-07 13:24] LABS: ANION GAP 8 MEQ/L (8-16); BLOOD UREA NITROGEN 20 MG/DL (7-18); CALCIUM LEVEL 10.2 MG/DL (8.8-10.2); CARBON DIOXIDE LEVEL 29 MEQ/L (21-32); CHLORIDE LEVEL 100 MEQ/L (98-107); GLOMERULAR FILTRATION RATE > 60.0 (>35); GLUCOSE, FASTING 108 MG/DL (83-110); POTASSIUM SERUM 4.6 MEQ/L (3.5-5.1); SODIUM LEVEL 137 MEQ/L (136-145)
--- NOTE | 2016-11-08 02:28 | REP ---
Clinical: Chest pain. Technique: PA and lateral. Comparison: 05/07/2016. Findings: The patient is noted to be status post sternotomy and aortic valve replacement. The cardiac silhouette is normal. The lung escobedo demonstrate chronic stable interstitial changes without acute consolidation, effusion, or pneumothorax. Chronic blunting to the left diaphragmatic surface and costophrenic angle remains unchanged. Skeletal structures demonstrate age-related changes. Upper abdomen demonstrates prior cholecystectomy. Impression: Chronic stable changes. No acute cardiopulmonary process appreciated. Signed by Andi Alejandro MD 11/08/2016 02:20 A
== END ==
LOC: M LAB 11:53
PROVIDERS: ATTEND Internal Medicine Cardiovascular Disease
DX: Z95.2 Presence of prosthetic heart valve (principal); I50.20 Unspecified systolic (congestive) heart failure; I25.810 Atherosclerosis of coronary artery bypass graft(s) without angina pectoris; I27.2 Other secondary pulmonary hypertension; I34.0 Nonrheumatic mitral (valve) insufficiency; R06.09 Other forms of dyspnea; I48.91 Unspecified atrial fibrillation

== ENCOUNTER 2017-01-29 03:47 | Emergency (ER) | payer OTHER ==
[~2017-01-29] VITALS: Ht 149.9 cm; Wt 64.0 kg
[~2017-01-29 03:47] MED LIST changes: -ASPI81TA21 PO; -FURO20TA2 PO; -VITMTA PO
[2017-01-29] MEDS ORDERED: SILVER NITRATE APPLICATOR As Ordered ONE (05:32)
[2017-01-29] MEDS ORDERED: SILVER NITRATE APPLICATOR TOP ONE (05:45)
[2017-01-29 06:03] VITALS: BP 129/79
[2017-01-30] MEDS ORDERED: FURO20TA2 PO (04:01)
[2017-01-30] MEDS ORDERED: ASPI81TA21 PO (04:01)
[2017-01-30] MEDS ORDERED: VITMTA PO (04:01)
== END 2017-01-29 06:20 | disposition home or self-care (01) ==
LOC: M ED 03:47 → EDBD 03:47 → EDSEX 03:47 → M ED 06:20
DX: K91.840 Postprocedural hemorrhage of a digestive system organ or structure following a digestive system procedure (principal); Z98.818 Other dental procedure status; D68.9 Coagulation defect, unspecified

== ENCOUNTER 2017-01-30 02:23 | Emergency (ER) | payer OTHER ==
[2017-01-30] MEDS ORDERED: NS 1,000 ML IV ONE (03:30)
[2017-01-30 03:37] LABS: BASO % 0.3 % (0.0-1.0); EOS % 0.2 % (0.0-3.0); IMMATURE GRANULOCYTE % 0.6 % (0-0); INR 1.11; LYMPH # 1.1 10^3/uL (1.5-4.5); LYMPH % 11.5 % (24.0-44.0); MEAN CORPUSCULAR HEMOGLOBIN 29.4 pg (27.0-33.0); MEAN CORPUSCULAR HGB CONC 33.7 g/dl (32.0-36.5); MEAN CORPUSCULAR VOLUME 87.2 fl (80.0-96.0); MONO # 0.5 10^3/uL (0.0-0.8); MONO % 5.1 % (0.0-5.0); NEUTROPHILS # 7.9 10^3/uL (1.8-7.7); NEUTROPHILS % 82.3 % (36.0-66.0); PLATELET COUNT, AUTOMATED 133 10^3/uL (150-450); RED CELL DISTRIBUTION WIDTH 16.1 % (11.5-14.5); WHITE BLOOD COUNT 9.6 10^3/uL (4.0-10.0)
[2017-01-30] MEDS ORDERED: VITMTA PO (04:01)
[2017-01-30] MEDS ORDERED: FURO20TA2 PO (04:01)
[2017-01-30] MEDS ORDERED: ASPI81TA21 PO (04:01)
[2017-01-30 04:48] LABS: ANION GAP 8 MEQ/L (8-16); BLOOD UREA NITROGEN 30 MG/DL (7-18); CALCIUM LEVEL 8.9 MG/DL (8.8-10.2); CARBON DIOXIDE LEVEL 26 MEQ/L (21-32); CHLORIDE LEVEL 105 MEQ/L (98-107); CREATININE FOR GFR 1.06 MG/DL (0.70-1.30); GLOMERULAR FILTRATION RATE > 60.0 (>35); GLUCOSE, FASTING 121 MG/DL (83-110); POTASSIUM SERUM 4.6 MEQ/L (3.5-5.1); SODIUM LEVEL 139 MEQ/L (136-145)
[2017-01-30] MEDS ORDERED: ONDANSETRON 4MG/2ML VIAL (J2405) IV PRN (05:00)
[2017-01-30] MEDS ORDERED: MORPHINE 2 MG/ML 1ML SYRINGE IV PRN (05:00)
[2017-01-30] MEDS ORDERED: SODIUM CHLORIDE 0.9% 1000 ML IV ONE (05:15)
[2017-01-30] MEDS ORDERED: NS 1,000 ML IV SCH (05:15)
--- NOTE | 2017-01-30 08:04 | ER ---
Date of Consult 01/30/[address] Ion Barajas PRIMARY CARE PROVIDER: Dr. Schroeder. MAGAZINE KEEPER: Dr. Burton. CONTACT CENTER REP: Dr. Rodríguez. CHIEF COMPLAINT: Dental bleeding. 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 Subsequently patient resumed Eliquis and aspirin on but with persistent dental bleeding and subsequently Eliquis and aspirin were stopped. Patient then presented to emergency room on Monday. Had a cauterization done by emergency room, was instructed to hold off Eliquis and aspirin and patient stated that he has not taken anything since , presented with recurrence of dental bleeding. Patient is orthostatic positive in the emergency room. Denies any chest pain, pressure, discomfort, shortness of breath. Had a history of fluid overload with questionable congestive heart failure (CHF). Denies any nausea or vomiting, abdominal pain. Patient sees Dr. Burton for cardiology and was optimized by Dr. Burton as per patient prior to the dental procedure. Denies any fevers or chills. ALLERGIES: QUINOLONES. PAST MEDICAL HISTORY: Atrial fibrillation. Coronary arterial disease with coronary artery bypass graft. 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 Hypertension. Dyslipidemia. Hiatal hernia. Gastroesophageal reflux disease. History of nephrolithiasis. History of prostate cancer. Urinary incontinence. PAST SURGICAL HISTORY: Coronary artery bypass graft with bioprosthetic mitral valve January 2016. Prostatectomy 20 years ago. Cholecystectomy 30 years ago. SOCIAL HISTORY: Denies smoking. Drinks wine on occasions. No elicit drug use. Retired. FAMILY HISTORY: Noncontributory. REVIEW OF SYSTEMS: Negative except for dental bleeding. HOME MEDICATIONS: - acetaminophen 500 mg by mouth as needed - Eliquis 5 mg by mouth twice daily - aspirin 81 mg by mouth daily - Lipitor 10 mg by mouth daily at bedtime - Alphagan eye drops twice daily - Nexium 20 mg by mouth daily - Lasix 20 mg by mouth three times a week - multivitamin on tablet by mouth daily - spironolactone 12.5 mg by mouth daily PHYSICAL EXAMINATION: Vital signs: Temperature 96.9, pulse 63, respirations 20 , blood pressure 127/69, pulse ox 98% on room air. General: Patient alert, oriented times three in no acute distress. HEENT: Blood throughout the mouth with clots. Packing in place. Pulmonary: Bilaterally clear to auscultation. Cardiac: Regular with mechanical murmur in diastolic. Abdomen: Soft, nontender, positive bowel sounds. Extremities: Trace edema bilateral lower extremities. EKG shows sinus rhythm of rate of 90 with left bundle branch that is old. LABORATORY: WBC 9.6, hemoglobin and hematocrit 12.8/38, platelets 133. Chemistry: Sodium 139, potassium 4.6, chloride 105, bicarbonate 26, BUN 30, creatinine 1.06. Cardiac enzymes negative. INR 1.11. ASSESSMENT AND PLAN: This is an 86-year-old male with underlying medical history of atrial fibrillation with mitral valve replacement, porcelain valve and coronary artery bypass graft (CABG), also above procedure done 01/18/2016, hypertension, dyslipidemia, hiatal hernia, gastroesophageal reflux disease (GERD), history of nephrolithiasis, prostate cancer with urinary incontinence, presented with persistent dental bleeding following dental extraction that was done on Monday. PROBLEMS: 1. Persistent dental bleeding following dental extraction on Monday. Patient was cauterized on Monday by the emergency room provider. Dr. Feliciano has been consulted to see what kind of procedure the patient will need. Patient was met further than 4 at baseline, is intermediate risk for low risk ambulatory procedure with possibility of low intermediate risk procedure progressing to low intermediate risk procedure. Will await for Dr. Feliciano to evaluate the patient prior to admission to determine what kind of procedure the oral surgeon is intending to do. Given significant history of recent CABG and with atrial fibrillation with mitral valve, will have to discuss with Dr. Burton the best course of action in regards to anticoagulation. Patient's aspirin and Eliquis has been on hold since . Case discussed with Dr. Burton given that anticoagulation has not been taken since , it should be out of the patient's system and Dr. Burton has been surprised why the patient is still bleeding but also right now due to the active bleeding, unfortunately anticoagulation cannot be resumed and there is significant stroke risk, but as of right now, we really do not have a choice. Recommend restarting anticoagulation 1-2 days following the bleeding has been stopped. Will await Dr. Feliciano from oral surgery for consultation. In the meantime, will hold Eliquis and aspirin as per Dr. Burton. EKG is appreciated. IV fluids with gentle hydration. Transfuse as needed. Continue to follow orthostatic vital signs. 2. Atrial fibrillation with mitral valve replacement. Case discussed with Dr. Burton. Unfortunately anticoagulation cannot be started given patient is having active bleeding due to dental procedure. There is significant stroke risk but unfortunately at this point, we do not have any choice. EKG shows sinus rhythm. Telemetry monitoring. Holding Eliquis for now. 3. Coronary arterial disease with coronary artery bypass graft (CABG) 01/17/2017, holding aspirin given persistent bleeding. Recommend restarting 1-2 days following the bleeding has stopped. Holding Lasix at this point. Monitor blood pressure. Continue statin. Continue spironolactone. 4. Hypertension. Monitor blood pressure. Holding Lasix. Continue spironolactone. 5. Dyslipidemia. Continue statin. 6. Hiatal hernia with gastroesophageal reflux disease (GERD). Continue PPI. 7. History of nephrolithiasis. Outpatient followup. 8. History of prostate cancer. Outpatient followup. 9. History of fluid overload possibly congestive heart failure. Strict input and output. Daily weight. Holding diuretics because patient is having active bleeding. 10. Chronic kidney disease (CKD). BUN and creatinine is actually better than baseline. Continue to monitor. 11. Deep venous thrombosis (DVT) prophylaxis. Sequential compression devices (SCD) given patient is having active dental bleeding on and off since Monday. DISPOSITION: Pending oral surgery consultation prior to decision for admission. ADDENDUM: Dr. Ion Barajas has discussed the case with Dr. Feliciano who recommended the patient to be transferred to [place] for further care. Please note that the case has been also discussed with Dr. Burton as mentioned in the previous note. Recommend holding anticoagulation for 1-3 days after the bleeding has stopped and then resume aspirin and Eliquis. Outpatient followup with primary care provider and cardiology after discharge. Further care as per accepting physician. Refer to previous note for full recommendation. MTDD
[2017-01-30 08:24] VITALS: BP 143/71
[2017-01-30] MEDS ORDERED: SPIRONOLACTONE 12.5MG PER 1/2 TABLET PO SCH (09:00)
[2017-01-30] MEDS ORDERED: MULTIVITAMINS/MINERALS THERAP 1 TAB PO SCH (09:00)
[2017-01-30] MEDS ORDERED: BRIMONIDINE 0.15% OPHTH SOLN 5 ML OU SCH (09:00)
[2017-01-30] MEDS ORDERED: SENOKOT S TAB PO SCH (09:00)
[2017-01-30] MEDS ORDERED: PANTOPRAZOLE 20 MG TAB PO SCH (09:00)
--- NOTE | 2017-01-30 09:40 | ECGEPIP ---
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
[2017-01-30] MEDS ORDERED: ATORVASTATIN 10 MG TAB PO SCH (21:00)
== END 2017-01-30 08:29 | disposition other institution (70) ==
LOC: M ED 02:23 → EDBD 02:23 → M ED 08:29
DX: K91.840 Postprocedural hemorrhage of a digestive system organ or structure following a digestive system procedure (principal); I44.7 Left bundle-branch block, unspecified; I44.0 Atrioventricular block, first degree; I10 Essential (primary) hypertension; E78.5 Hyperlipidemia, unspecified; K21.9 Gastro-esophageal reflux disease without esophagitis; Z95.1 Presence of aortocoronary bypass graft; Z79.01 Long term (current) use of anticoagulants; K44.9 Diaphragmatic hernia without obstruction or gangrene; Z80.42 Family history of malignant neoplasm of prostate; Z87.442 Personal history of urinary calculi; N18.9 Chronic kidney disease, unspecified; Z86.718 Personal history of other venous thrombosis and embolism; Z79.899 Other long term (current) drug therapy; Z88.8 Allergy status to other drugs, medicaments and biological substances

== ENCOUNTER 2017-02-02 14:30 | Inpatient (IN) | payer OTHER, MEDICARE ==
[~2017-02-02] VITALS: Ht 157.5 cm; Wt 69.5 kg
[~2017-02-02 14:30] MED LIST changes: +ASPI81TA21 PO; +FURO20TA2 PO; +VITMTA PO
[2017-02-02] MEDS ORDERED: NS 1,000 ML IV SCH (14:54)
[2017-02-02] MEDS ORDERED: ONDANSETRON 4MG/2ML VIAL (J2405) IV ONE (15:00)
[2017-02-02 15:24] LABS: BASO % 0.1 % (0.0-1.0); IMMATURE GRANULOCYTE % 0.6 % (0-0); LYMPH % 1.7 % (24.0-44.0); MEAN CORPUSCULAR HEMOGLOBIN 29.8 pg (27.0-33.0); MEAN CORPUSCULAR HGB CONC 33.7 g/dl (32.0-36.5); MEAN CORPUSCULAR VOLUME 88.6 fl (80.0-96.0); MONO # 0.4 10^3/uL (0.0-0.8); MONO % 3.7 % (0.0-5.0); NEUTROPHILS # 9.5 10^3/uL (1.8-7.7); NEUTROPHILS % 93.9 % (36.0-66.0); PLATELET COUNT, AUTOMATED 110 10^3/uL (150-450); RED CELL DISTRIBUTION WIDTH 16.7 % (11.5-14.5); WHITE BLOOD COUNT 10.2 10^3/uL (4.0-10.0)
[2017-02-02 15:34] LABS: INR 1.28
[2017-02-02 15:38] LABS: LYMPH # 0.2 10^3/uL (1.5-4.5); POSITIVE DIFF POS FLAG
[2017-02-02 16:01] LABS: ALBUMIN 3.3 GM/DL (3.2-5.2); ALBUMIN/GLOBULIN RATIO 1.03 (1.00-1.93); ALKALINE PHOSPHATASE 68 U/L (45-117); ALT/SGPT 19 U/L (12-78); ANION GAP 8 MEQ/L (8-16); AST/SGOT 13 U/L (15-37); BILIRUBIN,DIRECT 0.2 MG/DL (0.0-0.2); BILIRUBIN,TOTAL 0.5 MG/DL (0.2-1.0); BLOOD UREA NITROGEN 18 MG/DL (7-18); CALCIUM LEVEL 9.2 MG/DL (8.8-10.2); CARBON DIOXIDE LEVEL 26 MEQ/L (21-32); CHLORIDE LEVEL 99 MEQ/L (98-107); CREATININE FOR GFR 1.02 MG/DL (0.70-1.30); GLOMERULAR FILTRATION RATE > 60.0 (>35); GLUCOSE, FASTING 141 MG/DL (83-110); SODIUM LEVEL 133 MEQ/L (136-145); TOTAL PROTEIN 6.5 GM/DL (6.4-8.2)
--- NOTE | 2017-02-02 17:59 | REP ---
AP PORTABLE CHEST: 02/02/2017: Comparison: 11/07/2016, 05/07/2016. Clinical history: Weakness. Known cardiac valve replacements. Findings: There is left ventricular configuration of the heart. Sternotomy wires and cardiac valve replacements evident. There is cardiomegaly, vascular redistribution with some interstitial edema. No gross effusion. No dense consolidation with air bronchograms. The diaphragms are well seen. The aorta is tortuous and somewhat calcified but unchanged. Airway intact. Bones demineralized. Impression: 1. Left ventricular configuration with some cardiomegaly, sternotomy wires with cardiac valve replacements and vascular redistribution with some interstitial pulmonary edema. No gross effusion, dense consolidation or mass. Signed by Simon Silva MD 02/02/2017 08:11 P
[2017-02-02] MEDS ORDERED: ONDANSETRON 4MG/2ML VIAL (J2405) IV PRN (19:00)
--- NOTE | 2017-02-02 20:12 | HPEPDOC ---
[facility] Medical History & Physical Date of Admission Feb 02, 2017 History and Physical PRIMARY CARE PROVIDER: Dr. Schroeder ATTENDING: Dr. Naveen Rahman CHIEF COMPLAINT: Generalized weakness, dizziness upon standing HISTORY OF PRESENT ILLNESS: This is a 78-year-old male past medical history of CAD status post CABG, atrial fibrillation currently off of his Eliquis given his recent hemorrhage, mitral valve replacement, hypertension, hyperlipidemia, GERD, history of rectal cancer presents complaining of dizziness upon standing. Patient was recently seen in the ED after having 5 teeth extracted, and being placed back on Eliquis with resulting of significant hemorrhage requiring him to be transferred to [facility]. At [facility], he had received stitches in the areas from where he had this teeth extracted, states he was very weak with ambulation however did 100 steps with physical therapy and subsequently discharged. Since the patient states she's been having poor appetite, and generalized weakness, and dizziness upon standing. Patient denies any further bleeding. Patient denies chest pain/specific palpitations. No syncopal episodes. Did have nausea however no vomiting or abdominal pain. PAST MEDICAL HISTORY: As per HPI PAST SURGICAL HISTORY: CABG, mitral valve replacement, prostatectomy, cholecystectomy SOCIAL HISTORY: Denies tobacco, occasionally drinks wine, illicit drug use. FAMILY HISTORY: Noncontributory ALLERGIES: Please see below. REVIEW OF SYSTEMS: HEENT: Denies sore throat/headache CARDIOVASCULAR: Denies chest pain/palpitations RESPIRATORY: Denies shortness of breath/cough GASTROINTESTINAL: denies nausea/vomiting GENITOURINARY: Denies dysuria/urinary urgency. MUSCULOSKELETAL: Denies myalgias/arthralgias NEUROLOGICAL: Denies any focal weakness HOME MEDICATIONS: Please see below. PHYSICAL EXAMINATION: Vitals: (see below) General: No acute distress, laying comfortably in bed. HEENT: Moist mucous membranes. Sutures at the right upper and lower gums where teeth were extracted. No bleeding noted. No signs of infection. Neck: No JVD or lymphadenopathy Cardiac: RRR, systolic murmurs Pulm: Diminished breath sounds at the bases b/l. No wheezing, rhonchi Abd: NT/ND + BS Ext: No edema or cyanosis. strength 5/5 in all ext. LABORATORY DATA: See below. IMAGING: MICROBIOLOGY: Please see below. ASSESSMENT/PLAN: 1. Orthostatic hypotension likely secondary to decreased by mouth intake, diuretics, as well as recent acute hemorrhage. Patient did have significant drop in his hemoglobin given his baseline hemoglobin of 13. We will transfuse 1 unit PRBC. Blood cx sent. We'll also hold Lasix/spironolactone for now. Physical therapy has been ordered. 2. History of CAD status post CABG- continue home meds 3. History of mitral valve replacement. 4. Atrial fibrillation previously on Eliquis, however he has been off since his recent hemorrhage and has been waiting to hear back from Dr. Burton, whether he should restart it. Please call Dr. Burton in the a.m. to discuss when restarting this would be appropriate. 5. Hyperlipidemia continue statin 6. GERD PPI 7. Generalized weakness- likely secondary to the above. Physical therapy has been ordered. 8. Mild hyponatremia- likely secondary to hypovolemia. We'll receiving blood transfusion today. 9. Chronic thrombocytopenia - stable. DVT prophylaxis SCDs Patient will be follow by Dr. Naveen Rahman starting 02/03/17 at 7 AM. Vital Signs Vital Signs Date Time Temp Pulse Resp B/P (MAP) Pulse Ox O2 Delivery O2 Flow Rate FiO2 02/02/17 18:35 102 119/58 (78) 02/02/17 18:20 92 02/02/17 14:51 98.1 14 Room Air Laboratory Data Labs 24H Laboratory Tests 2 02/02/17 15:13: Immature Granulocyte % (Auto) 0.6H, White Blood Count 10.2H, Red Blood Count 3.25L, Hemoglobin 9.7L, Hematocrit 28.8L, Mean Corpuscular Volume 88.6, Mean Corpuscular Hemoglobin 29.8, Mean Corpuscular Hemoglobin Concent 33.7, Red Cell Distribution Width 16.7H, Platelet Count 110L, Neutrophils (%) (Auto) 93.9H, Lymphocytes (%) (Auto) 1.7L, Monocytes (%) (Auto) 3.7, Eosinophils (%) (Auto) 0.0, Basophils (%) (Auto) 0.1, Neutrophils # (Auto) 9.5H, Lymphocytes # (Auto) 0.2L, Monocytes # (Auto) 0.4, Eosinophils # (Auto) 0.0, Basophils # (Auto) 0.0, Immature Granulocyte # (Auto) 0.1H, Nucleated Red Blood Cells % (auto) 0.0, Prothrombin Time 16.3H, Prothromb Time International Ratio 1.28, Anion Gap 8, Glomerular Filtration Rate > 60.0, Calcium Level 9.2, Aspartate Amino Transf ( AST/SGOT) 13L, Alanine Aminotransferase (ALT/SGPT) 19, Alkaline Phosphatase 68, Total Bilirubin 0.5, Direct Bilirubin 0.2, Total Creatine Kinase 24L, Creatine Kinase MB 1.0, Creatine Kinase MB Relative Index 4.16H, Troponin I 0.02, Total Protein 6.5, Albumin 3.3, Albumin/Globulin Ratio 1.03, Lipase 116 02/02/17 19:41: CBC/BMP Laboratory Tests 02/02/17 15:13 Red Blood Count 3.25 L, Mean Corpuscular Volume 88.6, Mean Corpuscular Hemoglobin 29.8, Mean Corpuscular Hemoglobin Concent 33.7, Red Cell Distribution Width 16.7 H, Neutrophils (%) (Auto) 93.9 H, Lymphocytes (%) (Auto ) 1.7 L, Monocytes (%) (Auto) 3.7, Eosinophils (%) (Auto) 0.0, Basophils (%) ( Auto) 0.1, Neutrophils # (Auto) 9.5 H, Lymphocytes # (Auto) 0.2 L, Monocytes # ( Auto) 0.4, Eosinophils # (Auto) 0.0, Basophils # (Auto) 0.0 Microbiology Microbiology 02/02/17 Blood Culture, Received Pending Home Medications Scheduled Atorvastatin Calcium (Atorvastatin Calcium) 10 Mg Tab, 10 MG PO DAILY Brimonidine Tartrate 0.15% (Alphagan P) 0.15 % Vijaya, 1 DROP OU BID Esomeprazole Magnesium Trihydr (Nexium) 20 Mg Cap, 20 MG PO DAILY Furosemide (Furosemide) 20 Mg Tab, 20 MG PO 3XW MON, WED, FRI Multivitamins *[facility] STOCKED* (Thera M Plus *[facility] STOCKED*) 1 Tab Tab, 1 TAB PO DAILY Spironolactone (Spironolactone) 25 Mg Tab, 12.5 MG PO DAILY Scheduled PRN Acetaminophen (Acetaminophen) 500 Mg Tab, 500 MG PO Q4H PRN for PAIN Allergies Coded Allergies: Quinolones (Unverified Allergy, Unknown, CIPRO - HIVES, 07/19/12) TEMITOPE TRUONG MD Feb 02, 2017 20:12
[2017-02-02] MEDS ORDERED: SODIUM CHLORIDE 0.9% 1000 ML IV ONE (20:30)
[2017-02-02] MEDS: BRIMONIDINE 0.15% OPHTH SOLN 5 ML OU SCH (21:00)
[2017-02-02 22:12] VITALS: BP 110/81
[2017-02-02 22:22] VITALS: BP 124/63
[2017-02-02 22:45] VITALS: BP 102/56
[2017-02-02 23:00] VITALS: BP 103/59
[2017-02-02] MEDS: ACETAMINOPHEN TAB 650MG DOSE (2X325MG) PO PRN (23:29)
--- NOTE | 2017-02-02 23:40 | IPNPDOC ---
Text Note Date of Service The patient was seen on 02/02/17. NOTE Evening resident and attending were called that patient has elevated temperature of 100.9 while he was receiving prbc transfusion. Patient however doesn't have any shortness of breath, tachycardia, rash or other signs or symptoms of transfusion reaction. At this point will give him one dose of tylenol and watch him. He does complaint of increased urinary frequency, will obtain UA and his blood cultures were pending from before. Will continue to monitor him closely. Patient has been discussed with Dr. Gamble. GME ATTESTATION My preceptor for this patient encounter was physically present in the building during the encounter and was fully available. As needed, all aspects of the patient interview, examination, medical decision making process, and medical care plan development were reviewed and approved by the preceptor. Preceptor is aware and concurs with the plan as stated in the body of this note and will attest to such by his/her cosignature. VS,Fishbone, I+O VS, Fishbone, I+O Laboratory Tests 02/02/17 15:13 Red Blood Count 3.25 L, Mean Corpuscular Volume 88.6, Mean Corpuscular Hemoglobin 29.8, Mean Corpuscular Hemoglobin Concent 33.7, Red Cell Distribution Width 16.7 H, Neutrophils (%) (Auto) 93.9 H, Lymphocytes (%) (Auto ) 1.7 L, Monocytes (%) (Auto) 3.7, Eosinophils (%) (Auto) 0.0, Basophils (%) ( Auto) 0.1, Neutrophils # (Auto) 9.5 H, Lymphocytes # (Auto) 0.2 L, Monocytes # ( Auto) 0.4, Eosinophils # (Auto) 0.0, Basophils # (Auto) 0.0 Vital Signs Date Time Temp Pulse Resp B/P (MAP) Pulse Ox O2 Delivery O2 Flow Rate FiO2 02/02/17 21:20 108 101/55 (70) 88 02/02/17 14:51 98.1 14 Room Air LANCE GREEN DO Feb 02, 2017 23:40
[2017-02-02 23:45] VITALS: BP 106/58
[2017-02-03] VITALS (8 sets, daily range): BP systolic 93–111; BP diastolic 52–64
[2017-02-03] MEDS: ACETAMINOPHEN TAB 650MG DOSE (2X325MG) PO PRN ×3 (04:53→20:27)
[2017-02-03 04:54] LABS: MEAN CORPUSCULAR HEMOGLOBIN 29.6 pg (27.0-33.0); MEAN CORPUSCULAR HGB CONC 33.5 g/dl (32.0-36.5); MEAN CORPUSCULAR VOLUME 88.6 fl (80.0-96.0); RED CELL DISTRIBUTION WIDTH 16.4 % (11.5-14.5); WHITE BLOOD COUNT 9.4 10^3/uL (4.0-10.0)
[2017-02-03 05:22] LABS: PLATELET COUNT, AUTOMATED 89 10^3/uL (150-450)
[2017-02-03 05:35] LABS: ANION GAP 5 MEQ/L (8-16); BLOOD UREA NITROGEN 20 MG/DL (7-18); CALCIUM LEVEL 8.6 MG/DL (8.8-10.2); CARBON DIOXIDE LEVEL 27 MEQ/L (21-32); CHLORIDE LEVEL 103 MEQ/L (98-107); CREATININE FOR GFR 1.12 MG/DL (0.70-1.30); GLOMERULAR FILTRATION RATE > 60.0 (>35); GLUCOSE, FASTING 118 MG/DL (83-110); IMMATURE PLATELET FRACTION % 6.7 % (0.0-10.9); POTASSIUM SERUM 4.4 MEQ/L (3.5-5.1); SODIUM LEVEL 135 MEQ/L (136-145)
--- NOTE | 2017-02-03 06:06 | ECGEPIP ---
Stationary ECG Study [facility] - ED Test Date: 2017-02-02 Pat Name: JOANNE ADAM Department: Room: - Gender: M [employer]: aleta : 1930 Requested By: Kalina Tapia Order Number: [id number] Reading MD: Haroon Hope Measurements Intervals [place] Rate: 110 P: 169 AL: 188 QRS: -49 QRSD: 133 T: 120 QT: 345 QTc: 469 Interpretive Statements SINUS TACHYCARDIA LEFT AXIS DEVIATION LBBB RATE CHANGE COMPARED TO 01/30/17 Electronically Signed On 02-03-2017 6:06:44 EDT by Haroon Hope
[2017-02-03 08:32] LABS: REASON FOR REVIEW COMPREHENSIVE REVIEW
--- NOTE | 2017-02-03 08:40 | IPNPDOC ---
Text Note Date of Service The patient was seen on 02/03/17. NOTE Subjective: Patient seen and examined at bedside. No new medical complaints. Objective: General: No acute distress, laying comfortably in bed. HEENT: NC/AT, EOMI, PERRL, MMM Neck: No JVD or lymphadenopathy Cardiac: RRR, +S1S2, systolic murmur radiating to axilla Pulm: Diminished breath sounds at the bases b/l. CTA B/L Abd: NT/ND, + BS Ext: No edema or cyanosis. strength 5/5 in all ext. ASSESSMENT/PLAN: 1. Orthostatic hypotension - likely secondary to decreased by mouth intake, complicated with diuretic therapy, and recent acute hemorrhage - hold Lasix/spironolactone for now 2. Anemia - possible acute blood anemia - he is s/p 1 U PRBC 3. History of CAD status post CABG- continue home meds 4. History of mitral valve replacement. 5. Atrial fibrillation - previously on Eliquis, however he has been off since his recent hemorrhage - will continue to hold NOAC for now 6. Hyperlipidemia continue statin 7. GERD PPI 8. Generalized weakness- likely secondary to the above. Physical therapy has been ordered. 9. Mild hyponatremia- likely secondary to hypovolemia - improving 10. Chronic thrombocytopenia - worsening. 11. History of prostate CA - s/p radical prostatectomy 11. DVT prophylaxis - mechanical VS,Fishbone, I+O VS, Fishbone, I+O Laboratory Tests 02/02/17 15:13 Red Blood Count 3.25 L, Mean Corpuscular Volume 88.6, Mean Corpuscular Hemoglobin 29.8, Mean Corpuscular Hemoglobin Concent 33.7, Red Cell Distribution Width 16.7 H, Neutrophils (%) (Auto) 93.9 H, Lymphocytes (%) (Auto ) 1.7 L, Monocytes (%) (Auto) 3.7, Eosinophils (%) (Auto) 0.0, Basophils (%) ( Auto) 0.1, Neutrophils # (Auto) 9.5 H, Lymphocytes # (Auto) 0.2 L, Monocytes # ( Auto) 0.4, Eosinophils # (Auto) 0.0, Basophils # (Auto) 0.0 02/03/17 04:24 Red Blood Count 3.07 L, Mean Corpuscular Volume 88.6, Mean Corpuscular Hemoglobin 29.6, Mean Corpuscular Hemoglobin Concent 33.5, Red Cell Distribution Width 16.4 H, Calcium Level 8.6 L Vital Signs Date Time Temp Pulse Resp B/P (MAP) Pulse Ox O2 Delivery O2 Flow Rate FiO2 02/03/17 04:54 100.5 91 24 107/54 (71) 96 Nasal Cannula 3.0 HAILEY BERGER MD Feb 03, 2017 08:40
[2017-02-03] MEDS: MULTIVITAMINS/MINERALS THERAP 1 TAB PO SCH (09:34)
[2017-02-03] MEDS: ATORVASTATIN 10 MG TAB PO SCH (09:34)
[2017-02-03] MEDS: PANTOPRAZOLE 20 MG TAB PO SCH (09:34)
[2017-02-03] MEDS: BRIMONIDINE 0.15% OPHTH SOLN 5 ML OU SCH ×2 (09:35→20:14)
[2017-02-03] MEDS: NYSTATIN 100,000 UNITS/GM TOPICAL PWD 15 GM TOP SCH ×2 (12:51→20:15)
[2017-02-03] MEDS: MEROPENEM INJ 1 GM in D5W MINI-BAG PLUS 100 ML IV SCH ×2 (13:20→20:15)
[2017-02-04] VITALS: BP 96/55
[2017-02-04 04:00] VITALS: BP 106/57
[2017-02-04] MEDS: MEROPENEM INJ 1 GM in D5W MINI-BAG PLUS 100 ML IV SCH (04:13)
[2017-02-04 04:44] LABS: MEAN CORPUSCULAR HEMOGLOBIN 29.8 pg (27.0-33.0); MEAN CORPUSCULAR HGB CONC 34.1 g/dl (32.0-36.5); MEAN CORPUSCULAR VOLUME 87.3 fl (80.0-96.0); RED CELL DISTRIBUTION WIDTH 16.2 % (11.5-14.5); WHITE BLOOD COUNT 8.3 10^3/uL (4.0-10.0)
[2017-02-04 04:51] LABS: PLATELET COUNT, AUTOMATED 71 10^3/uL (150-450)
[2017-02-04 04:52] LABS: PLTBLUE- EDTA FREE CALC 50 K/mm3 (172-450)
[2017-02-04 04:55] LABS: ANION GAP 9 MEQ/L (8-16); BLOOD UREA NITROGEN 26 MG/DL (7-18); CALCIUM LEVEL 8.8 MG/DL (8.8-10.2); CARBON DIOXIDE LEVEL 23 MEQ/L (21-32); CHLORIDE LEVEL 103 MEQ/L (98-107); CREATININE FOR GFR 1.09 MG/DL (0.70-1.30); GLOMERULAR FILTRATION RATE > 60.0 (>35); GLUCOSE, FASTING 108 MG/DL (83-110); POTASSIUM SERUM 4.4 MEQ/L (3.5-5.1); SODIUM LEVEL 135 MEQ/L (136-145)
[2017-02-04 05:16] LABS: PLTBLUE- EDTA FREE MACHINE 45 10^3/uL (172-450)
[2017-02-04] MEDS ORDERED: VANCOMYCIN HCL 1,000 MG, VIAL MATE ADAPTER 1 EACH in D5W 250 ML IV ONE (07:00)
--- NOTE | 2017-02-04 07:44 | IPNPDOC ---
Text Note Date of Service The patient was seen on 02/04/17. NOTE Subjective: Patient seen and examined at bedside. No new medical complaints. His groin is still bothering him but has improved. Objective: General: No acute distress, laying comfortably in bed. HEENT: NC/AT, EOMI, PERRL, MMM Neck: No JVD or lymphadenopathy Cardiac: RRR, +S1S2, systolic murmur radiating to axilla Pulm: Diminished breath sounds at the bases b/l. CTA B/L Abd: NT/ND, + BS Ext: No edema or cyanosis. strength 5/5 in all ext. ASSESSMENT/PLAN: 1. Bacteremia - in the setting of prosthetic mitral valve - January 18, 2016 - BCX + Staph Aureus x2, sensitivities pending; repeat cultures pending; ESR/ CRP pending - concern for endocarditis, recent dental procedure; not clear if bacterial prophylaxis was implemented - to d/w cardiology and id - echocardiogram pending - vanco/genta 2. Orthostatic hypotension - likely secondary to bactermia, possible endocarditis - complicated with decreased PO intake, diuretic therapy, and recent acute hemorrhage - holding Lasix/spironolactone for now 3. Anemia - possible acute blood anemia - he is s/p 1 U PRBC 4. History of CAD status post CABG- continue home meds 5. History of mitral valve replacement - january 2016, tissue valve 6. Atrial fibrillation - previously on Eliquis, however he has been off since his recent hemorrhage - will continue to hold NOAC for now 7. Hyperlipidemia continue statin 8. GERD PPI 9. Generalized weakness- likely secondary to the above. Physical therapy has been ordered. 10. Mild hyponatremia- likely secondary to hypovolemia - improving 11. Chronic thrombocytopenia - worsening. 12. History of prostate CA - s/p radical prostatectomy 13. DVT prophylaxis - mechanical VS,Fishbone, I+O VS, Fishbone, I+O Laboratory Tests 02/04/17 04:08 Red Blood Count 2.99 L, Mean Corpuscular Volume 87.3, Mean Corpuscular Hemoglobin 29.8, Mean Corpuscular Hemoglobin Concent 34.1, Red Cell Distribution Width 16.2 H, Calcium Level 8.8 Vital Signs Date Time Temp Pulse Resp B/P (MAP) Pulse Ox O2 Delivery O2 Flow Rate FiO2 02/04/17 06:00 Nasal Cannula 2.0 02/04/17 04:00 98.0 86 17 106/57 (88) 98 HAILEY BERGER MD Feb 04, 2017 07:44
[2017-02-04 07:46] LABS: ERYTHROCYTE SEDIMENTATION RATE 41 mm/hr (0-30)
[2017-02-04 08:00] VITALS: BP 100/59
[2017-02-04] MEDS ORDERED: GENTAMICIN 80 MG in APPROPRIATE DILUENT 1 EA IV SCH ×2 (08:00→18:00)
[2017-02-04] MEDS: MULTIVITAMINS/MINERALS THERAP 1 TAB PO SCH (08:44)
[2017-02-04] MEDS: ATORVASTATIN 10 MG TAB PO SCH (08:44)
[2017-02-04] MEDS: BRIMONIDINE 0.15% OPHTH SOLN 5 ML OU SCH (08:45)
[2017-02-04] MEDS: PANTOPRAZOLE 20 MG TAB PO SCH (08:45)
[2017-02-04] MEDS: NYSTATIN 100,000 UNITS/GM TOPICAL PWD 15 GM TOP SCH (08:45)
--- NOTE | 2017-02-04 10:21 | DS.PDOC ---
Discharge Summary General Date of Admission Feb 02, 2017 at 18:46 Date of Discharge 02/04/17 Discharge Summary DISCHARGE DIAGNOSES: 1. Staph aureus bacteremia. 2. Hx of prosthetic mitral valve replacement - Jan 2016 3. Recent dental extraction complicated with bleeding requiring further suturing - 01/29 4. Hx prostate CA s/p radical prostatectomy 5. A fib 6. Hyperlipidemia 7. GERD 8. Thrombocytopenia 9. CAD s/p CABG 10. HTN COMPLICATIONS/CHIEF COMPLAINT: Anemia,Orthostatic Hypotension,Weakness. HOSPITAL COURSE: This is a 78-year-old male with a past medical history as indicated who presented for dizziness upon standing. Patient was recently seen in the ED on 01/30 after having 5 teeth extracted on 01/29 for bleeding. He was transferred to [facility] in [place]. As per patient he had received stitches in the areas from where he had this teeth extracted. After cleared by PT, he was subsequently discharged. Patient denies chest pain/specific palpitations. No syncopal episodes. He did have some episodes of nausea however no vomiting or abdominal pain. During this hospital stay 2/4 blood cultures returned preliminarily positive for staph aureus. Remaining 2 blood cultures are preliminarily positive for G+ cocci in clusters. Patient was started on IV vancomycin. TTE was performed, with results still pending at this time. DISCHARGE MEDICATIONS: Please see below. ALLERGIES: Please see below. PHYSICAL EXAMINATION: Vitals: (see below) General: No acute distress, laying comfortably in bed, elderly HEENT: Moist mucous membranes. Sutures at the right upper and lower gums where teeth were extracted. No bleeding noted. No signs of infection. Neck: No JVD or lymphadenopathy Cardiac: RRR, + systolic murmur Pulm: Diminished breath sounds at the bases b/l. No wheezing, rhonchi Abd: soft, NT/ND, + BS; gross sacral edema Ext: No edema or cyanosis. strength 5/5 in all ext. PROGNOSIS: guarded ACTIVITY: [As tolerated]. DIET: 2 gram sodium DISPOSITION: Transfer to [facility] ITEMS TO FOLLOWUP ON ON OUTPATIENT: 1. Further direction as per receiving facility - [facility], accepting MD Dr. Cota. DISCHARGE CONDITION: Hemodynamically stable TIME SPENT ON DISCHARGE: Greater than 30 minutes. Vital Signs/I&Os Vital Signs Date Time Temp Pulse Resp B/P (MAP) Pulse Ox O2 Delivery O2 Flow Rate FiO2 02/04/17 06:00 Nasal Cannula 2.0 02/04/17 04:00 98.0 86 17 106/57 (73) 98 Laboratory Data Labs 24H Laboratory Tests 2 02/04/17 04:08: Nucleated Red Blood Cells % (auto) 0.0, Platelet Count, EDTA Free 50L, Erythrocyte Sedimentation Rate 41H, Anion Gap 9, Glomerular Filtration Rate > 60.0, Blood Urea Nitrogen 26H, Creatinine 1.09, Sodium Level 135L, Potassium Level 4.4, Chloride Level 103, Carbon Dioxide Level 23, Calcium Level 8.8, C- Reactive Protein, Quantitative 18.60H CBC/BMP Laboratory Tests 02/04/17 04:08 Red Blood Count 2.99 L, Mean Corpuscular Volume 87.3, Mean Corpuscular Hemoglobin 29.8, Mean Corpuscular Hemoglobin Concent 34.1, Red Cell Distribution Width 16.2 H, Calcium Level 8.8 Microbiology Microbiology 02/04/17 Blood Culture, Received Pending 02/04/17 Blood Culture, Received Pending 02/03/17 Blood Culture - Preliminary, Resulted 02/03/17 Blood Culture - Preliminary, Resulted 02/02/17 Blood Culture - Preliminary, Resulted Staphylococcus Aureus 02/02/17 Blood Culture - Preliminary, Resulted Staphylococcus Aureus 02/03/17 MRSA Screen, Received Pending 02/03/17 Influenza Virus Type A Antigen - Final, Complete 02/03/17 Influenza Virus Type B Antigen - Final, Complete 02/02/17 Urine Culture, Received Pending Discharge Medications Scheduled Atorvastatin Calcium (Atorvastatin Calcium) 10 Mg Tab, 10 MG PO DAILY, (Reported ) Brimonidine Tartrate 0.15% (Alphagan P) 0.15 % Vijaya, 1 DROP OU BID, (Reported) Esomeprazole Magnesium Trihydr (Nexium) 20 Mg Cap, 20 MG PO DAILY, (Reported) Furosemide (Furosemide) 20 Mg Tab, 20 MG PO 3XW, (Reported) MON, WED, FRI Multivitamins *[facility] STOCKED* (Thera M Plus *[facility] STOCKED*) 1 Tab Tab, 1 TAB PO DAILY, (Reported) Scheduled PRN Acetaminophen (Acetaminophen) 500 Mg Tab, 500 MG PO Q4H PRN for PAIN, (Reported) Allergies Coded Allergies: Quinolones (Unverified Allergy, Unknown, CIPRO - HIVES, 07/19/12) HAILEY BERGER MD Feb 04, 2017 10:21
--- NOTE | 2017-02-04 11:48 | ECHO ---
DATE OF PROCEDURE: 02/03/2017 REFERRING PHYSICIAN: Dr. Rahman The study was performed on 02/03/2017 in the evening hours. Patient measures 158cm, weighs 55 kg. INDICATION: Bacteremia, syncope. DIMENSIONS: IVS: 1.1 LV: 4.8 LVPW: 1.1 LA 3.8 Aorta 3.2 FINDINGS: The study is of acceptable technical quality. Left ventricle is of normal size. There is extensive wall motion abnormality involving mid and distal septum, all apex, distal anterior wall and distal inferior wall. These segments are akinetic and septum is probably dyskinetic. Overall, left ventricle ejection fraction is estimated in the neighborhood of 25-30%. There appears to be an echodensity in left ventricular apex that could represent false tendon, but I cannot rule out that this actually represents apical thrombus, even though by color Doppler imaging it appears that there is some flow through this mass so I suspect it is most likely just false tendon. Right ventricle was poorly visualized. It appears grossly normal size and normal contractility. Both atria are severely enlarged. There is an echodensity attached to the lateral surface of right atrium measuring 2.8 x 1.9 cm without appreciable mobility. This most likely represents thrombus, even though alternative etiology of actual tumor is certainly possible, vegetation is less likely. In the left atrium towards the posterior wall of the left atrium there is poorly visualized echodensity again possibly representing thrombus or mass. Aortic valve appears normal for patient's age. There is a bioprosthetic valve in mitral position. It appears grossly normal based on limited views. Tricuspid valve appears normal but it is abutting his right atrial mass described above. Pulmonic valve appears normal. No pericardial effusion is noted. Inferior vena cava is dilated but there is no appreciable collapse with respiration indicative of very high central venous pressure. Aortic root and aortic arch appear normal. Abdominal aorta was poorly visualized but grossly also appears normal. Doppler interrogation of aortic valve reveals no insufficiency and trivial stenosis. There is no significant gradient increase over the mitral valve, even though continuous wave Doppler was not properly documented. It appears that the gradient is only about 4, which is within normal values. There is mild insufficiency of the prosthesis. Tricuspid valve exhibits at least moderate and potentially severe insufficiency. Calculated pulmonary artery pressure is at least in high 50s and probably higher corresponding to at minimum moderately severe pulmonary hypertension. Pulmonic valve also exhibits trace insufficiency. Evaluation of diastolic function is inconclusive due to underlying atrial fibrillation. CONCLUSION: 1. Study is of acceptable technical quality. 2. Normal LV size with anteroapical and septal wall motion abnormality and overall severe LV systolic dysfunction. 3. Severe biatrial enlargement. 4. Normal RV function. 5. Normal aortic valve. 6. Bioprosthesis in mitral position with normal gradient and trace insufficiency. 7. At least moderate tricuspid insufficiency. 8. Very high central venous pressure and at least moderately severe pulmonary hypertension. 9. Masses visualized in both atria and left ventricle most likely representing thrombi, even though the mass in the left ventricular apex could represent just false tendon. COMMENT: Subacute bacterial endocarditis (SBE) prophylaxis is recommended. This is certainly very abnormal echocardiogram. Patient is being transferred to [facility] in [place] for further management. Findings discussed with . YUKI
[2017-02-04 12:00] VITALS: BP 99/54
[2017-02-04] MEDS ORDERED: VANCOMYCIN HCL 1,000 MG, VIAL MATE ADAPTER 1 EACH in D5W 250 ML IV SCH (17:00)
== END 2017-02-04 12:32 | disposition short-term general hospital (02) | DRG 812 ==
LOC: M ED 14:30 → M ED INP 18:46 → EEVIPCON 18:46 → M ICU 22:04
PROVIDERS: ADMIT Internal Medicine; ATTEND Internal Medicine
PROC: 30233N1 Transfusion of Nonautologous Red Blood Cells into Peripheral Vein, Percutaneous Approach (ICD-10-PCS; principal; 2017-02-02)
DX: D62 Acute posthemorrhagic anemia (principal); R78.81 Bacteremia; E87.1 Hypo-osmolality and hyponatremia; I95.1 Orthostatic hypotension; I10 Essential (primary) hypertension; E78.5 Hyperlipidemia, unspecified; K21.9 Gastro-esophageal reflux disease without esophagitis; Z95.1 Presence of aortocoronary bypass graft; Z79.899 Other long term (current) drug therapy; Z88.8 Allergy status to other drugs, medicaments and biological substances; I25.10 Atherosclerotic heart disease of native coronary artery without angina pectoris; I48.91 Unspecified atrial fibrillation; D69.6 Thrombocytopenia, unspecified; E86.0 Dehydration; Z85.46 Personal history of malignant neoplasm of prostate; E86.1 Hypovolemia